=== PATIENT | female | born 1945 | race Caucasian/White ===

== ENCOUNTER 2020-07-08 10:58 | Outpatient (CLI) | payer MEDICARE, SELFPAY ==
--- NOTE | 2020-07-08 11:03 | MM_ITS ---
WS: [id number] BILATERAL SCREENING DIGITAL MAMMOGRAM WITH CAD HISTORY: SCREENING COMPARISON: 01/08/2019, 01/01/2018, 12/11/2017, 04/19/2016 and 09/10/2015 Bilateral CC and MLO views submitted. Computer aided detection analyzed. Breast composition: There are scattered areas of fibroglandular density. No suspicious masses, microc alcifications or architectural distortion. Calcifications in each breast are stable. There is a loose cluster of calcifications in the posterior lateral LEFT breast which has remained stable over multip le prior years with only minimal increase in number of calcifications. MM/[place] [id number] IMPRESSION: BI-RADS: 2-Benign FOLLOW UP: 1 Year Follow-up
== END 2020-07-08 10:59 | disposition home or self-care (01) ==
LOC: RADSHAW 11:02
PROVIDERS: Family Provider Family Medicine; Visit Provider Nurse Practitioner Family
DX: Z12.31 Encounter for screening mammogram for malignant neoplasm of breast (principal)
CPT/HCPCS: 77067

== ENCOUNTER 2021-04-14 10:49 | Outpatient (RCR) | payer MEDICARE, SELFPAY | END 2021-05-04 23:59 | disposition home or self-care (01) | LOC: SPT 10:49 | PROVIDERS: PCP Nurse Practitioner Family; Referring Provider Nurse Practitioner Family; Visit Provider Nurse Practitioner Family | DX: M53.3 Sacrococcygeal disorders, not elsewhere classified (principal) | CPT/HCPCS: 97113; 97161 ==

== ENCOUNTER → 2021-04-15 09:22 | Outpatient (BNVA) | payer MEDICARE, SELFPAY | PROVIDERS: PCP Nurse Practitioner Family; Referring Provider Nurse Practitioner Family; Visit Provider Anesthesiology Pain Medicine | DX: G89.29 Other chronic pain (principal); M47.816 Spondylosis without myelopathy or radiculopathy, lumbar region; M48.062 Spinal stenosis, lumbar region with neurogenic claudication; M51.16 Intervertebral disc disorders with radiculopathy, lumbar region; M79.605 Pain in left leg; Z79.899 Other long term (current) drug therapy | CPT/HCPCS: 99204 ==

== ENCOUNTER → 2021-05-03 14:07 | Outpatient (BNVA) | payer MEDICARE, SELFPAY | PROVIDERS: PCP Nurse Practitioner Family; Visit Provider Surgery | DX: Z01.812 Encounter for preprocedural laboratory examination (principal); Z20.822 Contact with and (suspected) exposure to COVID-19 | CPT/HCPCS: 87635 ==

== ENCOUNTER 2021-05-05 06:00 | Outpatient (RCR) | payer MEDICARE, SELFPAY | END 2021-06-04 23:59 | disposition home or self-care (01) | LOC: SPT 06:00 | PROVIDERS: PCP Nurse Practitioner Family; Referring Provider Nurse Practitioner Family; Visit Provider Nurse Practitioner Family | DX: M53.3 Sacrococcygeal disorders, not elsewhere classified (principal) | CPT/HCPCS: 97113 ==

== ENCOUNTER 2021-05-06 06:37 | Day surgery (SDC) | payer MEDICARE, SELFPAY ==
[2021-05-03 15:58] VITALS: BMI 38.4
--- NOTE | 2021-05-06 07:08 | P.ANESASSM_ITS ---
Pre-Anesthetic Assessment Pre-Anesthetic Assessment: Height/Weight: Height 1.57 m Weight 95.254 kg Preop Diagnosis: GERD, colon polyps Proposed Procedure: Operation Date: 05/06/21 08:00 Proposed Procedures p EGD/Colon 45282 K21.9(Not Applicable) - Ramses Waters MD s Colonoscopy 06962 K63.5(Not Applicable) - Ramses Waters MD Was Beta Neva taken within 24 hours: N/A Was Clonidine taken within 24 hours: N/A Social: Social History: No alcohol and No tobacco Exam: Pre-Anes Outpt Exam: clear to auscultation bilaterally and regular rate & rhythm Airway: Submandibular: WNL Cervical ROM: Other (Limited neck extension) MP: 3 Dentition: Chipped History/ROS: No significant history except as noted Pulmonary: Pulmonary: DONOVAN CV/HEM: CV/HEM: HTN and None reported : : None reported Hepatic: Hepatic: None reported GI: GI: GERD Comments: hx of polyps Metabolic: Metabolic: DM Musc/skel: Musc/skel: None reported Neuropsych: Neuropsych: None reported Anesthetic Plan: ASA status: 3 Anesthesia: Anesthesia Evaluation Risk of > 500 ml blood loss (7ml/kg in children): No PFSH Anesthesia 2 PFSH: Medical History Colon polyps Dyslipidemia GERD (gastroesophageal reflux disease) Hypertension Type 2 diabetes mellitus Surgical History History of back surgery laser spine 2018 History of x2 History of carpal tunnel repair 2012 History of colonoscopy with polypectomy 2018 History of esophagogastroduodenoscopy (EGD) 2018 S/P right knee surgery Status post left foot surgery 1990 Family History Denies family history of Anesthesia complication Bleeding disorder Social History Smoking and tobacco status: never smoked Alcohol intake: never Caregiver/support person: Yes Lives independently: Yes Household members: spouse History of recent travel: No Data Anesthesia Cardiac Studies: No Data to Display
[2021-05-06 07:09] VITALS: BP 177/80; PULSE 94; RESP 18; TEMP 36.1; O2SAT 96
[2021-05-06] MEDS: sodium chloride 0.9% 1,000 ML 30 ML IV (07:24)
--- NOTE | 2021-05-06 08:04 | W.PM.OPSFHP ---
Same Day Surgery H&P Indication for Procedure/HPI DATE OF PROCEDURE: May 06, 2021 CHIEF COMPLAINT/INDICATIONFOR SURGICAL PROCEDURE: gerd/colon polyp PREOP DIAGNOSIS: GERD, colon polyps PLANNED PROCEDRUE: Operation Date: 05/06/21 08:00 Proposed Procedures p EGD/Colon 74272 K21.9(Not Applicable) - Ramses Waters MD s Colonoscopy 26507 K63.5(Not Applicable) - Ramses Waters MD Medications/Allergies* Home Medications Medication Instructions Recorded Confirmed Type atorvastatin 20 mg tablet 20 mg PO DAILY 03/30/21 05/06/21 History diphenhydramine HCl 25 mg tablet 25 mg PO TID PRN 03/30/21 05/06/21 History donepezil 10 mg tablet 10 mg PO DAILY 03/30/21 05/06/21 History enalapril maleate 5 mg tablet 20 mg PO BID 03/30/21 05/06/21 History insulin glargine 100 unit/mL 61 unit SUBCUT BEDTIME 03/30/21 05/06/21 History subcutaneous solution nitroglycerin 0.4 mg sublingual 0.4 mg SUBLINGUAL Q5M PRN 03/30/21 05/03/21 History tablet pioglitazone 30 mg tablet 30 mg PO DAILY 03/30/21 05/03/21 History diltiazem HCl 120 mg PO DAILY 05/03/21 05/06/21 History diphenoxylate-atropine 2.5 tab PO PRN PRN 05/03/21 05/06/21 History omeprazole 20 mg PO BID 05/03/21 05/03/21 History Allergies/Adverse Reactions Allergy/AdvReac Type Severity Reaction Status Date / Time aspirin [From Percodan] Allergy Mild unknown Verified 04/15/21 09:43 codeine Allergy Mild unknown Verified 04/15/21 09:43 hydrocodone Allergy Mild unknown Verified 04/15/21 09:43 loratadine Allergy Mild unknown Verified 04/15/21 09:43 oxycodone Allergy Mild unknown Verified 04/15/21 09:43 prochlorperazine Allergy Mild unknown Verified 04/15/21 09:43 [From Compazine] Current Medications: Generic Name Dose Route Start Last Admin Trade Name Freq PRN Reason Stop Dose Admin Sodium Chloride 1,000 mls @ 30 mls/hr 05/06/21 06:45 05/06/21 07:24 Sodium Chloride 0.9% IV 05/07/21 06:44 30 mls/hr .Q24H GENIA Administration Pertinent History/Comorbid Conditions* Medical History (Updated 04/15/21 @ 10:35 by Mike Pryor MD) Colon polyps Dyslipidemia GERD (gastroesophageal reflux disease) Hypertension Type 2 diabetes mellitus Surgical History (Updated 03/30/21 @ 08:55 by Ramses Waters MD) History of back surgery laser spine 2018 History of x2 History of carpal tunnel repair 2012 History of colonoscopy with polypectomy 2018 History of esophagogastroduodenoscopy (EGD) 2018 S/P right knee surgery Status post left foot surgery 1990 Family History (Updated 04/15/21 @ 10:13 by Beatris Bravo LPN) Denies family history of Anesthesia complication Bleeding disorder Social History Smoking and tobacco status: never smoked Alcohol intake: never Caregiver/support person: Yes Lives independently: Yes Household members: spouse History of recent travel: No Pertinent Exam Findings alert, oriented x 3 and regular rate & rhythm Recommendations Surgery/Procedure today Coding Level of Care Code 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
[2021-05-06 08:48] VITALS: BP 139/71; PULSE 73; RESP 17; TEMP 36.4; O2SAT 94
--- NOTE | 2021-05-06 09:45 | PC.NURSE ---
Dr. Waters was in the room and this RN told physician that the patient was in pain. Dr. Waters explained to this RN and the patient that she would have some discomfort due to the amount of air that placed in the abdomen and passing gas and belching will help. Patient was placed on the commode twice and was able to pass gas. Patient then was placed back in bed and laid on her side where she started to pass more gas. Patients abdominal pain improved with passing gas. Patient also was able to belch several times prior to discharge as well.
[2021-05-06 09:48] VITALS: BP 150/64; PULSE 73; RESP 18; TEMP 36.6; O2SAT 95
--- NOTE | 2021-05-06 13:15 | ANE.PACU2 ---
Inpatient post-anesthesia follow up: Airway intact: Yes Vital signs: Temperature 97.8 F Pulse Rate 73 Respiratory Rate 18 Blood Pressure 150/64 Pulse Oximetry 95 Oxygen Delivery Me thod Room Air Oxygen Flow Rate Fraction of Inspir ed Oxygen Hydration adequate: Yes Nausea and vomiting: Yes Pain level: 1 (0) Mental status: Baseline
== END 2021-05-06 09:55 | disposition home or self-care (01) ==
PROVIDERS: PCP Nurse Practitioner Family; Visit Provider Surgery
PROC: 0DJD8ZZ Inspection of Lower Intestinal Tract, Via Natural or Artificial Opening Endoscopic (ICD-10-PCS; CPT 45378; 2021-05-06 08:00)
PROC: 0DJ08ZZ Inspection of Upper Intestinal Tract, Via Natural or Artificial Opening Endoscopic (ICD-10-PCS; CPT 43235; 2021-05-06 08:00)
DX: K21.9 Gastro-esophageal reflux disease without esophagitis (principal); K44.9 Diaphragmatic hernia without obstruction or gangrene; D12.2 Benign neoplasm of ascending colon; D12.0 Benign neoplasm of cecum; D12.4 Benign neoplasm of descending colon; D12.3 Benign neoplasm of transverse colon; K64.8 Other hemorrhoids; I10 Essential (primary) hypertension; E11.9 Type 2 diabetes mellitus without complications; E78.5 Hyperlipidemia, unspecified
CPT/HCPCS: 43239; 45380; 45385; 88305; 96360; 96361; J2704; J7030

== ENCOUNTER → 2021-05-07 10:37 | Outpatient (BNVA) | payer MEDICARE, SELFPAY | PROVIDERS: PCP Nurse Practitioner Family; Visit Provider Family Medicine | DX: Z01.812 Encounter for preprocedural laboratory examination (principal); Z20.822 Contact with and (suspected) exposure to COVID-19 | CPT/HCPCS: 87635 ==

== ENCOUNTER 2021-05-10 06:55 | Outpatient (CLI) | payer MEDICARE, SELFPAY ==
--- NOTE | 2021-05-10 07:15 | MR_ITS ---
WS: [id number] MRI LUMBAR SPINE NONCONTRAST HISTORY: Prior spine surgery. No prior images for comparison. LEFT hip and leg pain. COMPARISON: None available. TECHNIQUE: Sagittal and axial multisequence imaging is submitted. Mild degenerative narrowing of the cervical canal due to ligamentum flavum hypertrophy and facet dise ase. Benign T5 hemangioma. Mild straightening of the normal lumbar lordosis. Mild disc desiccation without significant loss of height. Conus terminates normally at L1. L1-L2: Mild ligamentum flavum hypertrophy. No stenosis. L2-L3: Mild annular disc bulging and very mild osteophytic ridging with ligamentum flavum hypertrophy . Very mild encroachment and narrowing of the foramina, LEFT greater than RIGHT. L3-L4: Mild annular disc bulging and osteophytic ridging. Mild ligamentum flavum and facet arthritis. Mild bilateral foraminal narrowing with no focal disc protrusion. L4-L5: Very mild annular disc bulging. Moderate ligamentum flavum and facet arthritis. Degenerative c hanges are resulting in mild bilateral foraminal stenosis. Very mild clumping of the nerve roots begi nning within the thecal sac. There is very slight contact on the LEFT traversing L5 nerve root. L5-S1: Mild facet and ligamentum flavum hypertrophy. Mild bilateral foraminal narrowing. Mild encroac hment into the LEFT subarticular recess by facet hypertrophy. No disc protrusions. Visualized retroperitoneum is normal. The liver is enlarged and extends inferiorly by at least 19 cm. This may be a Mari's lobe. MR/MR lumbar spine wo con* [id number] IMPRESSION: 1. No high-grade central or foraminal stenosis. No acute fractures or marrow e maribell. 2. Mild bilateral foraminal narrowing from L2-3 to L3-4 due to combination of facet, ligamentum flavum disease and disc disease. 3. Minimal contact on the LEFT traversing L5 and S1 nerve roots. 4. Degenerative changes involving the facets and ligamentum flavum throughout the lumbar spine but most significant at L4-5.
== END 2021-05-10 06:56 | disposition home or self-care (01) ==
LOC: RADSHAW 06:58
PROVIDERS: PCP Nurse Practitioner Family; Visit Provider Anesthesiology Pain Medicine
DX: M48.062 Spinal stenosis, lumbar region with neurogenic claudication (principal); M25.552 Pain in left hip; M79.605 Pain in left leg
CPT/HCPCS: 72148

== ENCOUNTER 2021-05-11 08:38 | Outpatient (CLI) | payer MEDICARE, SELFPAY ==
--- NOTE | 2021-05-11 08:57 | USCV_ITS ---
Jaki Hummel Age: 75 Gender: F : 1945 Exam Date: 05/11/2021 09:03 Ordering Phys: Antwon Angel MD Technologist: [place] Exam Location: [facility] – [place] Indication: CHEST PAIN BP: 153 / 73 HR: 64 Rhythm: Sinus Technical Quality: Technically difficult study MEASUREMENTS (Male / Female) Normal Values 2D ECHO LV Diastolic Diameter PLAX 3.5 cm 4.2 - 5.9 / 3.9 - 5.3 cm LV Systolic Diameter PLAX 2.2 cm IVS Diastolic Thickness 1.3 cm 0.6 - 1.0 / 0.6 - 0.9 cm IVS Systolic Thickness 1.6 cm LVPW Diastolic Thickness 1.1 cm 0.6 - 1.0 / 0.6 - 0.9 cm LVPW Systolic Thickness 1.6 cm RV Chamber Size 3.1 cm LVOT Diameter 2.0 cm LV Ejection Fraction 2D Teich 59.7 % LV Ejection Fraction MOD 2C 59.5 % LV Ejection Fraction 2C AL 61.0 % LA Diameter 3.4 cm LA Width 3.9 cm LA Height 5.0 cm RA Width 4.0 cm RA Height 3.7 cm Aorta at Sinotubular Diameter 2.4 cm M-MODE Aortic Annulus Diameter 3.2 cm LA Ao Ratio MM 1.2 MV E Point Septal Separation 0.4 cm DOPPLER AV Peak Velocity 121.0 cm/s LVOT Peak Velocity 100.0 cm/s AV Area Cont Eq vti 2.6 cm squared AV Area Cont Eq pk 2.6 cm squared MV Area PHT 3.7 cm squared Mitral E to A Ratio 0.8 MV E' Velocity 48.0 cm/s Mitral E to MV E' Ratio 10.5 Mitral E to LV E' Lateral Ratio 12.0 Mitral E to LV E' Septal Ratio 9.4 TR Peak Velocity 322.9 cm/s TR Peak Gradient 41.7 mmHg TR Mean Velocity 230.4 cm/s TR Mean Gradient 21.9 mmHg TR Velocity Time Integral 86.4 cm TV Peak E Velocity 55.0 cm/s Right Atrial Pressure 3.0 mmHg Pulmonary Artery Systolic Pressu 44.7 mmHg PV Peak Velocity 93.0 cm/s RV Acceleration Time 0.1 s RV Ejection Time 0.3 s RV AcT/ET 0.2 FINDINGS Left Ventricle Normal left ventricular size, systolic function and wall thickness, with no diagnostic regional wall motion abnormalities. Left ventricular ejection fraction is estimated at 55 %. Normal diastolic function. Right Ventricle Normal right ventricular size and systolic function. Right ventricular systolic pressure 36 mmHg. Right Atrium Normal right atrial size. Right atrial pressure estimated at 3 mm Hg. Left Atrium Mildly increased left atrial size. Mitral Valve Mild mitral annular calcification. Mildly thickened mitral valve. No mitral valve stenosis. Trace mitral valve regurgitation. Aortic Valve Structurally normal trileaflet aortic valve. No aortic valve stenosis. No aortic valve regurgitation. Tricuspid Valve Structurally normal tricuspid valve. Trace to mild tricuspid valve regurgitation. Pulmonic Valve Pulmonic valve not well visualized. No pulmonary valve stenosis. Trace pulmonary valve regurgitation. Pericardium No pericardial effusion. Aorta Normal size aortic root and proximal ascending aorta. Normal- sized inferior vena cava with less than 50% respiratory variation. CONCLUSIONS 1. Normal left ventricular size, systolic function and wall thickness, with no diagnostic regional wall motion abnormalities. Left ventricular ejection fraction is estimated at 55 %. Normal diastolic function. 2. Normal right ventricular size and systolic function. 3. Mild pulmonary hypertension with pulmonary pressure estimated at 36 mmHg. 4. When compared to previous echocardiogram dated 12/18/2017, there may not have been any significant change. Vivienne Yousif MD (Electronically Signed) Final Date: 11 May 2021 18:03 S
== END 2021-05-11 08:39 | disposition home or self-care (01) ==
LOC: RAD 08:42
PROVIDERS: PCP Nurse Practitioner Family; Visit Provider Family Medicine
DX: R07.9 Chest pain, unspecified (principal); I27.20 Pulmonary hypertension, unspecified
CPT/HCPCS: 93306

== ENCOUNTER 2021-05-13 08:13 | Outpatient (CLI) | payer MEDICARE, SELFPAY ==
--- NOTE | 2021-05-13 11:31 | PFTS_ITS ---
Date of Study:05/13/21 Date of Dictation: 05/13/2021 MECHANICS: Prebronchodilator forced vital capacity (FVC) is normal. Prebronchodilator forced expiratory volume in one second (FEV1) is normal. FEV1/FVC is normal. There is no postbronchodilator study FLOW VOLUME LOOP: Flattening of inspiratory limb variable extrathoracic obstruction LUNG VOLUMES: Not measured DIFFUSING CAPACITY FOR CARBON MONOXIDE: Not measured . INTERPRETATION: The prebronchodilator spirometry is normal. Flattening of inspiratory limb suggestive of variable extrathoracic obstruction. Clinical correlation recommended. MTDD
== END 2021-05-13 08:14 | disposition home or self-care (01) ==
PROVIDERS: PCP Nurse Practitioner Family; Visit Provider Family Medicine
DX: I27.20 Pulmonary hypertension, unspecified (principal); R07.9 Chest pain, unspecified
CPT/HCPCS: 94010

== ENCOUNTER → 2021-05-17 10:30 | Outpatient (BNVA) | payer MEDICARE, SELFPAY | PROVIDERS: PCP Nurse Practitioner Family; Visit Provider Anesthesiology Pain Medicine | DX: M47.816 Spondylosis without myelopathy or radiculopathy, lumbar region (principal); M51.16 Intervertebral disc disorders with radiculopathy, lumbar region; M79.605 Pain in left leg | CPT/HCPCS: 99214 ==

== ENCOUNTER → 2021-05-24 13:01 | Outpatient (BNVA) | payer MEDICARE, SELFPAY | PROVIDERS: PCP Nurse Practitioner Family; Visit Provider Anesthesiology Pain Medicine | DX: M47.816 Spondylosis without myelopathy or radiculopathy, lumbar region (principal) | CPT/HCPCS: 64493; 64494; 64495; J3490 ==

== ENCOUNTER → 2021-06-09 09:17 | Outpatient (BNVA) | payer MEDICARE, SELFPAY | PROVIDERS: PCP Nurse Practitioner Family; Visit Provider Anesthesiology Pain Medicine | DX: M47.816 Spondylosis without myelopathy or radiculopathy, lumbar region (principal); M51.16 Intervertebral disc disorders with radiculopathy, lumbar region; M79.605 Pain in left leg | CPT/HCPCS: 99214 ==

== ENCOUNTER → 2021-06-22 13:22 | Outpatient (BNVA) | payer MEDICARE, SELFPAY | PROVIDERS: PCP Nurse Practitioner Family; Visit Provider Anesthesiology Pain Medicine | DX: M47.816 Spondylosis without myelopathy or radiculopathy, lumbar region (principal) | CPT/HCPCS: 64493; 64494; 64495; J3490 ==

== ENCOUNTER → 2021-07-01 08:51 | Outpatient (BNVA) | payer MEDICARE, SELFPAY | PROVIDERS: PCP Nurse Practitioner Family; Visit Provider Anesthesiology Pain Medicine | DX: M47.816 Spondylosis without myelopathy or radiculopathy, lumbar region (principal); M51.16 Intervertebral disc disorders with radiculopathy, lumbar region; M79.605 Pain in left leg | CPT/HCPCS: 99214 ==

== ENCOUNTER → 2021-07-13 14:00 | Outpatient (BNVA) | payer MEDICARE, SELFPAY | PROVIDERS: PCP Nurse Practitioner Family; Visit Provider Anesthesiology Pain Medicine | DX: M47.816 Spondylosis without myelopathy or radiculopathy, lumbar region (principal) | CPT/HCPCS: 64635; 64636; J1030 ==

== ENCOUNTER → 2021-07-27 12:58 | Outpatient (BNVA) | payer MEDICARE, SELFPAY | PROVIDERS: PCP Nurse Practitioner Family; Visit Provider Anesthesiology Pain Medicine | DX: Z01.812 Encounter for preprocedural laboratory examination (principal); E11.9 Type 2 diabetes mellitus without complications; M47.816 Spondylosis without myelopathy or radiculopathy, lumbar region | CPT/HCPCS: 36416; 64635; 64636; 82962 ==

== ENCOUNTER 2021-08-05 08:58 | Outpatient (CLI) | payer MEDICARE, SELFPAY ==
[2021-08-05 09:36] VITALS: BMI 37.8
--- NOTE | 2021-08-05 09:38 | ECG_ITS ---
[facility] Test Date: 2021-08-05 Pat Name: Jaki Hummel Department: Room: Gender: Female Solutions Manager: Clara Johnson : 1945 Requested By: Ashvin Langley Order Number: [id number] Jermaine MD: Ashvin Langley M.D. Interpretive Statements NAME OF STUDY: LEXISCAN SESTAMIBI STRESS TEST INDICATION: Chest Pain, PROCEDURE: At the baseline, the EKG revealed normal sinus rhythm with a poor R wave progression. The baseline blood pressure was 129/78 mm Hg with a heart rate of 73 beats/min. Lexiscan was infused over a period of 20 seconds. A total of 0.4 milligrams of Lexiscan was infused. The stress phase was continued for a total of 5 minutes. Heart rate at the end of the stress phase was 81 with a blood pressure 131/72. The EKG at the peak infusion revealed no significant changes. Sestamibi was injected 20 seconds after the Lexiscan infusion. Blood pressure at the end of the recovery phase was 110/70 with a heart rate of 83 per minute. CONCLUSION: 1. No significant EKG changes with the LexiScan infusion 2. No LexiScan induced chest pain or cardiac arrhythmia 3. Normal blood pressure and heart rate response 4. Sestamibi/sestamibi perfusion scan pending; see separate report. Electronically Signed On 08-06-2021 19:34:14 JACQUARD TWINE POLISHER OPERATOR by Ashvin Langley M.D. [id number]
--- NOTE | 2021-08-05 09:39 | NMCV_ITS ---
NM harjinder perf SPECT r/s* [id number] Jaki Hummel Age: 75 Gender: F : 1945 Exam Date: 08/05/2021 10:23 Ordering Phys: Ashvin Langley MD ([email or web address]) Technologist: BRITNEY Can Exam Location: [facility] Indications: SHORTNESS OF BREATH STRESS TEST Please see separate stress test report in [facility] for full findings IMAGE PROTOCOL Rest/Stress 1 Lexiscan Day Radiopharmaceutical Dose (mCi) Administration Site Administered by Rest: Tc-99m 11.0 IV BRITNEY Can Sestamibi Stress:Tc-99m 32.9 IV BRITNEY López Sestamibi Rest: 05-Aug-2021 60 Discovery 630 Stress: 05-Aug-2021 30 Discovery 630 0.4mg Lexiscan. Supine position only as patient was unable to lay prone. SPECT RESULTS Technical Quality: Good Raw Data Analysis: Breast attenuation Image Corrections: No attenuation or motion correction applied Summed Stress Score: 0 Summed Rest Score: 0 Summed Difference Score: 0 PERFUSION FINDINGS Uniform myocardial tracer uptake. No significant perfusion normalities FUNCTIONAL RESULTS (calculated via Gated SPECT) Stress Image LV EF (%): 75 Stress EDV (mL):67 TID: 0.89 Stress ESV (mL):17 FUNCTIONAL FINDINGS: Segmental wall motion analysis revealing no gross wall motion abnormalities IMPRESSIONS 1. Unremarkable myocardial perfusion imaging 2. Normal LV ejection fraction of 75%. 3. LV wall motion analysis revealing no gross wall motion normalities. 4. Normal LV volume. Low probability for coronary ischemia, based on the above findings corrected copy Dr Ashvin Langely MD [facility] (Electronically Signed) Final Date: 05 August 2021 16:51 Amended: 06 August 2021 18:08 C
[2021-08-05] MEDS: regadenoson 0.4 Mg/5 ml Syringe IVP (10:56)
[2021-08-05 11:10] VITALS: BP 110/70; PULSE 78
== END 2021-08-05 08:59 | disposition home or self-care (01) ==
LOC: RAD 09:08 → CDL 09:21
PROVIDERS: PCP Nurse Practitioner Family; Visit Provider Internal Medicine Cardiovascular Disease
DX: R07.9 Chest pain, unspecified (principal); R06.02 Shortness of breath
CPT/HCPCS: 78452; 93017; A9500; J2785

== ENCOUNTER → 2021-08-11 09:50 | Outpatient (BNVA) | payer MEDICARE, SELFPAY | PROVIDERS: PCP Nurse Practitioner Family; Visit Provider Anesthesiology Pain Medicine | DX: M47.816 Spondylosis without myelopathy or radiculopathy, lumbar region (principal); M51.16 Intervertebral disc disorders with radiculopathy, lumbar region; M79.605 Pain in left leg | CPT/HCPCS: 99213 ==

== ENCOUNTER → 2021-11-08 10:32 | Outpatient (BNVA) | payer MEDICARE, SELFPAY | PROVIDERS: PCP Nurse Practitioner Family; Visit Provider Anesthesiology Pain Medicine | DX: M25.552 Pain in left hip (principal); M47.816 Spondylosis without myelopathy or radiculopathy, lumbar region; M51.16 Intervertebral disc disorders with radiculopathy, lumbar region | CPT/HCPCS: 99214 ==

== ENCOUNTER 2021-12-10 13:29 | Outpatient (CLI) | payer MEDICARE, SELFPAY ==
--- NOTE | 2021-12-10 13:53 | MM_ITS ---
WS: [id number] BILATERAL 3D TOMOSYNTHESIS DIGITAL SCREENING MAMMOGRAPHY WITH CAD CLINICAL INFORMATION: SCREENING HISTORY: Screening mammogram. No current complaints. COMPARISON: July 08, 2020 TECHNIQUE: Bilateral CC and MLO views. FINDINGS: Scattered fibroglandular densities bilaterally. Vascular calcification. Stable clustered calcificatio ns posterior inferior LEFT breast. No suspicious focal mass, asymmetry, calcifications, or architectu ral distortion. No evidence of malignancy. MM/[place] [id number] IMPRESSION: BI-RADS: 2-Benign FOLLOW UP: 1 Year Follow-up Recommend return to annual screening mammography.
== END 2021-12-10 13:30 | disposition home or self-care (01) ==
PROVIDERS: PCP Nurse Practitioner Family; Visit Provider Family Medicine
DX: Z12.31 Encounter for screening mammogram for malignant neoplasm of breast (principal)
CPT/HCPCS: 77063; 77067

== ENCOUNTER → 2022-02-17 07:58 | Outpatient (BNVA) | payer MEDICARE, SELFPAY | PROVIDERS: PCP Nurse Practitioner Family; Visit Provider Family Medicine | DX: I10 Essential (primary) hypertension; E78.5 Hyperlipidemia, unspecified; Z85.828 Personal history of other malignant neoplasm of skin; E11.65 Type 2 diabetes mellitus with hyperglycemia; M51.16 Intervertebral disc disorders with radiculopathy, lumbar region; M47.816 Spondylosis without myelopathy or radiculopathy, lumbar region; K21.9 Gastro-esophageal reflux disease without esophagitis; Z00.00 Encounter for general adult medical examination without abnormal findings; Z76.89 Persons encountering health services in other specified circumstances; K58.0 Irritable bowel syndrome with diarrhea; R41.3 Other amnesia | CPT/HCPCS: 80053; 80061; 82043; 83036 ==

== ENCOUNTER → 2022-03-09 09:05 | Outpatient (BNVA) | payer MEDICARE, SELFPAY | PROVIDERS: PCP Nurse Practitioner Family; Visit Provider Anesthesiology Pain Medicine | DX: M47.816 Spondylosis without myelopathy or radiculopathy, lumbar region (principal); M51.16 Intervertebral disc disorders with radiculopathy, lumbar region; M79.605 Pain in left leg | CPT/HCPCS: 99214 ==

== ENCOUNTER → 2022-03-23 09:14 | Outpatient (BNVA) | payer MEDICARE, SELFPAY | PROVIDERS: PCP Nurse Practitioner Family; Visit Provider Anesthesiology Pain Medicine | DX: M79.18 Myalgia, other site (principal); M54.9 Dorsalgia, unspecified | CPT/HCPCS: 20553; G0463 ==

== ENCOUNTER → 2022-05-09 11:13 | Outpatient (BNVA) | payer MEDICARE, SELFPAY | PROVIDERS: PCP Family Medicine; Visit Provider Anesthesiology Pain Medicine | DX: M54.9 Dorsalgia, unspecified (principal); M51.17 Intervertebral disc disorders with radiculopathy, lumbosacral region; M47.816 Spondylosis without myelopathy or radiculopathy, lumbar region; M51.16 Intervertebral disc disorders with radiculopathy, lumbar region; M79.605 Pain in left leg | CPT/HCPCS: 72072; 99214 ==

== ENCOUNTER → 2022-05-10 13:37 | Outpatient (BNVA) | payer MEDICARE, SELFPAY | PROVIDERS: PCP Family Medicine; Visit Provider Podiatrist Foot & Ankle Surgery | DX: M76.822 Posterior tibial tendinitis, left leg (principal); R60.9 Edema, unspecified; M79.672 Pain in left foot | CPT/HCPCS: 73630; 99204 ==

== ENCOUNTER → 2022-05-26 08:27 | Outpatient (BNVA) | payer MEDICARE, SELFPAY | PROVIDERS: PCP Family Medicine; Visit Provider Family Medicine | DX: E11.65 Type 2 diabetes mellitus with hyperglycemia (principal) | CPT/HCPCS: 80048; 83036 ==

== ENCOUNTER → 2022-08-11 10:32 | Outpatient (BNVA) | payer MEDICARE, SELFPAY | PROVIDERS: PCP Family Medicine; Visit Provider Anesthesiology Pain Medicine | DX: M47.816 Spondylosis without myelopathy or radiculopathy, lumbar region (principal); M51.16 Intervertebral disc disorders with radiculopathy, lumbar region | CPT/HCPCS: 99213 ==

== ENCOUNTER → 2022-08-24 08:51 | Outpatient (BNVA) | payer MEDICARE, SELFPAY | PROVIDERS: PCP Family Medicine; Visit Provider Family Medicine | DX: E11.65 Type 2 diabetes mellitus with hyperglycemia (principal); I10 Essential (primary) hypertension; E78.5 Hyperlipidemia, unspecified; K21.9 Gastro-esophageal reflux disease without esophagitis | CPT/HCPCS: 80053; 80061; 83036 ==

== ENCOUNTER → 2022-08-30 12:35 | Outpatient (BNVA) | payer MEDICARE, SELFPAY | PROVIDERS: PCP Family Medicine; Visit Provider Anesthesiology Pain Medicine | DX: M47.816 Spondylosis without myelopathy or radiculopathy, lumbar region (principal) | CPT/HCPCS: 64635; 64636; J1030 ==

== ENCOUNTER → 2022-09-14 10:18 | Outpatient (BNVA) | payer MEDICARE, SELFPAY | PROVIDERS: PCP Family Medicine; Visit Provider Anesthesiology Pain Medicine | DX: M47.816 Spondylosis without myelopathy or radiculopathy, lumbar region (principal); M51.16 Intervertebral disc disorders with radiculopathy, lumbar region | CPT/HCPCS: 99214 ==

== ENCOUNTER → 2022-12-22 08:34 | Outpatient (BNVA) | payer MEDICARE, SELFPAY | PROVIDERS: PCP Family Medicine; Visit Provider Family Medicine | DX: E11.65 Type 2 diabetes mellitus with hyperglycemia (principal) | CPT/HCPCS: 83036 ==

== ENCOUNTER 2022-12-29 08:02 | Outpatient (CLI) | payer MEDICARE, SELFPAY ==
[2022-12-29] MEDS: iohexol 350 mg/mL 500 mL Btl (per mL) IV (08:28)
--- NOTE | 2022-12-29 08:30 | CT_ITS ---
WS: [id number] CT ABDOMEN WITH CONTRAST HISTORY: luq pain tenderness Contiguous single phase 5 mm axial imaging performed to the abdomen. Oral contrast has been provided. Coronal and sagittal reformats are submitted. All CT scans at [facility] use at least one of these dose optimization techniques: automated exposure control; mA and/or kV adjustment per patient size (includes targeted exams where dose is matched to clinical indication); or iterative reconstruct ion. IV CONTRAST: Omnipaque 350; 100 mL IV. Oral contrast: No DLP: 466.57 mGy.cm COMPARISON: None available. Lower thorax: Lung bases are clear. Heart is normal size. Small hiatal hernia. Liver/biliary system: Mild hepatomegaly. Liver measures 19 cm in length. No mass or bile duct dilatat ion. Normal portal vein. Gallbladder: Normal. No gallstones or wall thickening. No pericholecystic fluid. Pancreas: Normal size pancreas and pancreatic duct. No adjacent inflammation. Spleen: Normal size spleen. No mass or infarct. Adrenal glands: Normal. Right kidney: Normal. Left kidney: Normal. Aorta: Normal. Lymphadenopathy: None. Free fluid: None. GI tract: Unremarkable. Abdominal wall: Unremarkable abdominal wall. No hernia. Visualized osseous structures: Mild thoracic spondylitic changes. CT/CT abdomen w con* [id number] IMPRESSION: 1. No acute abdominal abnormalities are identified. 2. Normal gallbladder. 3. Mild atherosclerosis aorta. 4. Mild hepatomegaly.
[2022-12-29 08:50] LABS: Blood Urea Nitrogen 16 mg/dL (8-23)
--- NOTE | 2022-12-29 13:25 | MM_ITS ---
WS: [id number] SCREENING DIGITAL BREAST TOMOSYNTHESIS MAMMOGRAM WITH CAD HISTORY: breast cancer screening COMPARISON: 12/10/2021, 07/08/2020 and 01/08/2019 Bilateral CC and MLO with tomosynthesis and synthetic mammography submitted. Computer aided detection analyzed. Breast composition: There are scattered areas of fibroglandular density. Increasing soft tissue with slight spiculation is noted in the posterior LEFT breast against the chest wall and just inferior to the nipple line. There are some calcifications adjacent and associated with this increasing soft tiss ue. These calcifications have been present on prior studies. Additional calcifications just above the nipple line on the lateral projection. RIGHT breast is negative. MM/[place] [id number] IMPRESSION: BI-RADS: 0-Incomplete: Need additional imaging evaluation FOLLOW UP: Need Additional Imaging LEFT breast: Spot compression views (CC and MLO). True ML. Ultrasound to follow if abnormality persists.
== END 2022-12-29 08:03 | disposition home or self-care (01) ==
LOC: RAD 08:08 → MOBLMAM 13:24
PROVIDERS: PCP Family Medicine; Visit Provider Family Medicine
DX: Z12.31 Encounter for screening mammogram for malignant neoplasm of breast (principal); R10.12 Left upper quadrant pain; I70.0 Atherosclerosis of aorta; R16.0 Hepatomegaly, not elsewhere classified
CPT/HCPCS: 74160; 77063; 77067; 82565; 84520; Q9967

== ENCOUNTER 2023-01-20 08:34 | Outpatient (CLI) | payer MEDICARE, SELFPAY ==
--- NOTE | 2023-01-20 08:38 | MM_ITS ---
WS: [id number] Left breast diagnostic 3D tomosynthesis digital mammogram, 01/20/2023 Clinical Data: ABNORMAL MAMMO Comparison: 12/29/2022, 12/10/2021, 07/08/2020, 01/08/2019, 12/11/2017, 11/20/2016, 04/19/2016, 09/10/2015, 2015, 12/04/2008, 12/23/2003. Findings: There are calcifications in the lower outer quadrant of the left breast, possibly in the 3 to 4 o'cayla ck position. There may be a small density associated with this mass. In the 1 to 2 o'clock position t here are also small calcifications which have not changed. Impression: 1. Calcifications in the lower outer quadrant in the left breast possibly 3 to 4 o'clock position. 2. Recommend left breast ultrasound. MM/[place] [id number] BIRADS: 4-Suspicious Finding-Biopsy Should Be Considered FOLLOW UP: See Report The CAD jukebox checker was used.
--- NOTE | 2023-01-20 08:38 | US_ITS ---
WS: [id number] Left breast ultrasound, 01/20/2023 Clinical Data: ABNORMAL MAMMO Comparison: Mammogram, 01/20/2023 Findings: In the 3 o'clock position 2 cm from the nipple in the left breast there is an region measuring 0.59 x 0.87 x 1.27 cm which has a lobulated border. This lesion also shows shadowing and probably correspon ds to the lesion noted on the mammogram. At 1:00 there is a small cluster of cysts measuring 0.52 x 0.68 x 0.72 cm. At the 2 o'clock position 2 cm from the nipple there is also a lymph node measuring 0.40 x 0.50 x 0.56 cm. Impression: 1. Suspicious region in the 3 o'clock position 2 cm from the nipple in the left breast which shows sh adowing. 2. Recommend biopsy of lesion at 3 o'clock position of the left breast. 3. Cysts at 1 o'clock position left breast and lymph node at the 2 o'clock position of the left breas t. US/US breast LT limited* [id number] BIRADS: 4-Suspicious Finding-Biopsy Should Be Considered FOLLOW UP: See Report
== END 2023-01-20 08:35 | disposition home or self-care (01) ==
PROVIDERS: PCP Family Medicine; Visit Provider Family Medicine
DX: R92.8 Other abnormal and inconclusive findings on diagnostic imaging of breast (principal); R92.1 Mammographic calcification found on diagnostic imaging of breast; N64.89 Other specified disorders of breast
CPT/HCPCS: 76642; 77061; G0279

== ENCOUNTER 2023-02-15 11:55 | Outpatient (CLI) | payer MEDICARE, SELFPAY ==
--- NOTE | 2023-02-15 12:10 | US_ITS ---
WS: [id number] ULTRASOUND-GUIDED LEFT BREAST BIOPSY CLINICAL INFORMATION: ABNORMAL MAMMO COMPARISON: 01/20/2023 FINDINGS: The procedure including risks, benefits, and complications were discussed with the patient who agreed to proceed. Using sterile technique patient was prepped and draped in the usual sterile fashion. Aft er 1% lidocaine utilizing real-time ultrasound guidance 7 14-gauge cores were obtained of the LEFT br east lesion at the 3 o'clock position 2 cm from the nipple. Subsequently a titanium clip was placed i n the biopsy cavity. No immediate complications. PATHOLOGY DEMONSTRATES Left breast, 3:00 position, 2.0 cm from nipple, needle core biopsy: 1. 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 2. Nuclear Grade 1-2 out of 3. 3. Approximately 60% of the tissue volume submitted involved with invasive neoplasm. 4. There is no evidence that suggests lymphovascular invasion. IMPRESSION: 1. Uncomplicated ultrasound-guided LEFT breast biopsy. 2. 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 3. Breast prognostic profile is pending. 4. Recommend breast surgery consultation. US/[place] [id number] BI-RADS: 6-Known Biopsy-Proven Malignancy FOLLOW UP: Surgical Biopsy Recommended
[2023-03-07 09:10] LABS: Breast Profile ER,PR,HER2,Ki-6 See Report
== END 2023-02-15 11:56 | disposition home or self-care (01) ==
PROVIDERS: PCP Family Medicine; Visit Provider Family Medicine
DX: C50.812 Malignant neoplasm of overlapping sites of left female breast (principal); R92.8 Other abnormal and inconclusive findings on diagnostic imaging of breast
CPT/HCPCS: 19083; 88305; 88361; 88374

== ENCOUNTER 2023-02-28 07:45 | Oncology outpatient (recurring) (ONCR) | payer MEDICARE, SELFPAY ==
[2023-02-28 09:34] LABS: Basophils # 0.1 10^3/uL (0.0-0.1); Basophils % 0.8 %; Eosinophils # 0.1 10^3/uL (0.0-0.8); Eosinophils % 1.4 %; Hematocrit 38.4 % (36-47); Lymphocytes # 2.7 10^3/uL (0.8-4.8); Lymphocytes % 40.5 %; Mean Corpuscular Hemoglobin 28.4 pg (27-33); Mean Corpuscular Volume 88.7 fl (85-98); Mean Platelet Volume 9.9 fL (7.4-10.4); Monocytes # 0.5 10^3/uL (0.2-0.9); Neutrophils # 3.22 10^3/uL (1.8-7.7); Neutrophils % 49.1 %; Nucleated Red Blood Cells % 0 %; Platelet Count 283 10^3/cmm (157-399); Red Blood Count 4.33 10^6/uL (3.85-5.65); Red Cell Distribution Width 13.6 % (12.1-15.1); White Blood Count 6.54 10^3/uL (3.29-11.43)
[2023-02-28 09:57] LABS: Alanine Aminotransferase 15 U/L (0-33); Albumin Level 4.3 g/dL (3.5-5.2); Alkaline Phosphatase 54 U/L (35-105); Aspartate Amino Transferase 12 U/L (0-32); Blood Urea Nitrogen 15 mg/dL (8-23); Calcium 8.8 mg/dL (8.5-10.5); Carbon Dioxide 24 mmol/L (22-29); Chloride 99 mmol/L (98-107); Creatinine Clr Calc Pharmacy 65.4459; Globulin 2.2 g/dL (1.3-4.6); Glucose 187 mg/dL (65-115); Osmolality Calculated 284 mOsm/kg (285-295); Sodium 134 mmol/L (136-145); Total Bilirubin 0.3 mg/dL (0.15-1.2); Total Protein 6.5 g/dL (6.6-8.7)
== END 2023-03-04 23:59 | disposition home or self-care (01) ==
PROVIDERS: PCP Family Medicine; Visit Provider Internal Medicine Medical Oncology
DX: C50.512 Malignant neoplasm of lower-outer quadrant of left female breast (principal); Z17.0 Estrogen receptor positive status [ER+]
CPT/HCPCS: 36415; 80053; 85025; 99205

== ENCOUNTER → 2023-03-14 14:24 | Outpatient (BNVA) | payer MEDICARE, SELFPAY | PROVIDERS: PCP Family Medicine; Referring Provider Family Medicine; Visit Provider Dermatology | DX: L57.0 Actinic keratosis (principal); L82.1 Other seborrheic keratosis; L57.8 Other skin changes due to chronic exposure to nonionizing radiation; Z85.828 Personal history of other malignant neoplasm of skin; D18.01 Hemangioma of skin and subcutaneous tissue | CPT/HCPCS: 17000; 99213 ==

== ENCOUNTER 2023-04-26 08:52 | Oncology outpatient (recurring) (ONCR) | payer MEDICARE, SELFPAY ==
--- OUTSIDE RECORDS SUMMARY | 2023-04-26 08:54 | XMS_ITS | Patient Health Record ---
Author Name Unknown Organization [facility] Address [address] [place] [address] Care Team Providers Care Computer Repairer Name Role Phone Veronica Bhakta Primary Care Provider [phone] Alexandrea Schuler Unavailable [phone] TANNA BRYAN Unavailable Unavailable ALLERGIES Allergen (clinical drug ingredient) Drug/Non Drug Allergy documented on EMR Reaction Allergy Type Onset Date Status codeine Codeine Sulfate nausea and vomiting Drug Allergy Active acetaminophen / hydrocodone Hydrocodone-Acet aminophen nausea and vomiting Drug Allergy Active lovastatin Lovastatin mood changes Drug Allergy Ac tive oxycodone Oxycodone HCl nausea and vomiting Drug Allergy Active Percodan nausea and vomiting Drug Allergy Active liraglutide Victoza pancreatitis Drug Allergy Ac tive Compazine Unknown Drug Allergy Active dapagliflozin Farxiga dizziness Drug Allergy Act ebony metformin Metformin diarrhea Drug Allergy Active Non-steroidal anti-inflammatory agent (FN) NSAIDs stomach upset Drug Allergy Active REASON FOR REFERRAL No Information MEDICATIONS Medication SIG (Take, Route, Frequency, Duration) Notes Start Date End Date Status Nitrostat 0.4 MG as directed Sublingual Active CoQ-10 100 MG 1 capsule with a meal Orally Once a day for 30 day(s) 07/14/2020 Active Omeprazole 20 MG 1 tablet 30 minutes before meals Orally twice daily for 90 days Active Probiotic - as directed Orally [place] Extra Strength Active OneTouch Ultra Test - use to test blood glucose In Vitro twice daily Dx: E11.65 Active dilTIAZem HCl ER Coated Beads 180 MG 1 capsule Orally Once a day for 90 days Active Honey 1 Tbs. Raw Honey Act ebony Yeast Formula - as directed Orally Mother's Yeas t ACV 1 Tbs. Active Donepezil HCl 10 MG 1 tablet at bedtime Orally Once a day for 90 days Active Pen [place] 31G X 6 MM Use to inject Lantus Dx: E11.9 sub q daily for 90 days Active Garlic 1000 MG 1 capsule Orally once a day NatureMade Active Vitamin E 400 UNIT 1 capsule Orally Once a day Active Vitamin D 50 MCG (2000 UT) 1 tablet Orally Once a day Active OneTouch Ultra - as directed In Vitro test daily for 1 day E11.9 Diabetes 06/15/2021 Active Januvia 25 MG 1 tablet Orally Once a day for 30 days 06/24/2021 Active OneTouch Ultra - USE 1 STRIP TO CHECK GLUCOSE TWICE DAILY for 90 Active Lantus SoloStar 100 UNIT/ML Inject 76 units Subcutaneous once daily for 90 days Active Allergy 10 MG 1 tablet Orally Once a day equate allergy/sinus headache Active Acetaminophen PM 500-25 MG 2 tablet at bedtime as needed Orally Once a day Active Pantothenic Acid B-5 Complex A ctive [place] 3 1200 MG 1 capsule Orally twice a day 1290mg Active Pioglitazone HCl 30 MG TAKE 1 TABLET BY MOUTH ONCE DAILY for 90 Active Enalapril Maleate 20 MG 1 tablet Orally twice daily for 90 days Active Atorvastatin Calcium 20 MG 1 tablet Orally once daily at bedtime for 90 days Active Vitamin C 1000 MG 1 tablet Orally Once a day Active IMMUNIZATIONS Vaccine Route Administration Date Status Comme nts COVID-19 Vaccine (Ziptask) Dose #1 Unknown 07/03/2020 Administered COVID-19 Vaccine (Ziptask) Dose #2 IM Intramuscular 07/31/2020 Administered SOCIAL HISTORY Tobacco Use: Social History Observation Description Date Details (start date - stop date) Never Smoker NA - NA Sex Assigned At : Social History Observation Description Sex Assigned At Unknown Tobacco Use/Smoking Question Answer Notes Are you a nonsmoker PROBLEMS Problem Type ICD Code Onset Dates Problem Status W/U Status Risk SNOMED Code Notes Problem Screening for breast cancer, unspecified (V76.10) 2015 Problem resolved confirmed Screening for malignant neoplasm of breast (719659704) [facility] [place] Problem 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 Problem resolved confirmed 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) [facility] [place]- Problem Liver steatosis (571.8) 2017 Problem resolved confirmed Chronic nonalcoholic liver disease (06437169) [facility] [place]- Problem External cerumen impaction (380.4) 2018 Problem resolved confirmed Impacted cerumen (04236909) [facility] [place]- Problem Osteomalacia (268.2) 2018 Problem resolved confirmed Osteomalacia (3726691) [facility] [place]- Problem Nonalcoholic fatty liver (571.8) 2016 Problem resolved confirmed Non-alcoholic fatty liver (350735543) [facility] [place]- Problem Insect bite (919.4) 2018 Problem resolved confirmed Insect bite (497840987) [facility] [place]- Problem Type II diabetes (250.00) 2015 Problem resolved confirmed Type II diabetes mellitus without complication (455848308) [facility] [place]- Problem Urinary tract infection (595.0) 2015 Problem resolved confirmed Urinary tract infection (37764300) [facility] [place]- Problem Foot swelling (729.81) 2018 Problem resolved confirmed Foot swelling (849106773) [facility] [place]- Problem Allergic rhinitis, unspecified cause (477.9) 2015 Problem resolved confirmed Allergic rhinitis (97188155) [facility] [facility] [place] Situational stress with anxiety (300.09) 2015 Problem resolved confirmed Anxiety state (150547331) [facility] [place]- Problem Other specified iron deficiency anemia (280.8) 2017 Problem resolved confirmed Iron deficiency anemia (39313223) [facility] [place] [facility] Problem Rib pain (786.50) 2017 Problem resolved confirmed Rib pain (419549380) [facility] [place]- Problem Elevated SGOT (AST) (790.4) 2015 Problem resolved confirmed Elevated levels of transaminase & lactic acid dehydrogenase (522672420) [facility] [place] [facility] Problem Chest pain (786.51) 2015 Problem resolved confirmed Chest pain (70813775) [facility] [place]- Problem Other abnormal findings on blood examination (790.99) 2015 Problem resolved confirmed Disorder of hematopoietic system (22186951) [facility] [place]- Problem Shortness of breath (786.09) 2016 Problem resolved confirmed Shortness of breath (951518918) [facility] [place]- Problem Hypotension, other (458.8) 2017 Problem resolved confirmed Hypotension (04439082) [facility] [place] [facility] Problem Iron deficiency anemia, unspecified (280.9) 2016 Problem resolved confirmed Iron deficiency anemia (82689329) [facility] [place] [facility] Problem Low back pain (724.2) 2015 Problem resolved confirmed Low back pain (739802669) [facility] [place] [facility] Problem Hyperlipidemia (272.4) 2017 Problem resolved confirmed Hyperlipidemia (42863833) [facility] [place] [facility] Problem Anemia, unspecified (285.9) 2018 Problem resolved confirmed Anemia (205953169) [facility] [place] [facility] Problem Sleep apnea (780.57) 2016 Problem resolved confirmed Sleep apnea (25583480) [facility] [place] [facility] Problem Urinary frequency (788.41) 2016 Problem resolved confirmed Urinary frequency (638071174) [facility] [place] [facility] Problem Dysuria (788.1) 2016 Problem resolved confirmed Dysuria (11863122) [facility] [place] [facility] Problem Diarrhea (787.91) 2018 Problem resolved confirmed Diarrhea (98902199) [facility] [place] [facility] Problem Cough (786.2) 2018 Problem resolved confirmed Cough (20412546) [facility] [place] [facility] Problem Type 2 diabetes (250.00) 2018 Active confirmed Type II diabetes mellitus without complication (146242680) [facility] [place] [facility] Problem GERD (530.81) 2017 Active confirmed Gastroesophageal reflux disease (134352575) [facility] [place] [facility] Problem Essential hypertension (401.1) 2018 Active confirmed Essential hypertension (50946974) [facility] [place] [facility] Problem Obstructive sleep apnea (780.57) 2016 Active confirmed Obstructive slee p apnea (01732985) [facility] [place] [facility] Problem Mitral valve regurgitation (424.0) 2015 Active confirmed Mitral valve regurgitation (06210231) [facility] [place] [facility] Problem IBS, diarrhea prominent type (564.1) 2018 Active confirmed Irritable bowel syndrome (12800168) [facility] [place] [facility] Problem Gastroesophageal reflux disease (530.81) 2017 Active confirmed Gastroesophageal reflux disease (652714860) [facility] [place] [facility] Problem Hypercholesterolemia (272.0) 2015 Active confirmed Hypercholesterol emia (10959167) [facility] [place] [facility] Problem Memory loss (780.93) 2018 Active confirmed Memory loss (33789253) [facility] [place] [facility] Problem Diabetes mellitus type 2, uncontrolled (E11.65) Active confirmed Diabetes mellit type 2 (03267307) Problem Seasonal allergies (J30.2) Active confirmed 937205933 Problem IBS (irritable bowel syndrome) (K58.9) Active confirmed Irritable bowel syndrome (30417511) Problem Hypercholesterolemia (E78.00) Active confirmed 05243793 Problem Pulmonary hypertension (I27.20) Active confirmed 33362204 Problem Memory loss (R41.3) Active confirmed 48 576176 Problem Essential hypertension (I10) Active confirmed 06603972 Problem Age-related osteoporosis without current pathological fracture (M81.0) Active confirmed 51512356 Problem Gastro-esophageal reflux disease without esophagitis (K21.9) Active confirmed Gastro-esophage al reflux disease without esophagitis (488554686) PLAN OF TREATMENT No Information Insurance Providers Payer Name Payer Address Payer Phone Subscriber Number Group Number Insured Name Patient Relationship to Insured Coverage Start Date Coverage End Date [facility] [address] [address] [place] [address] [id number] Jaki Hummel Self - patient is the insured MEDICATIONS ADMINISTERED Medication Instructions Date of Administration Dosage Notes dexAMETHasone 11/18/2021 30 mg MEDICAL (GENERAL) HISTORY Medical History History ICD Code Hypertension Hypercholesterolemia Mitral valve regurgitation GERD IBS Sleep apnea Type 2 diabetes Osteomalacia Chronic back pain Allergies; seasonal Skin cancer; squamous cell Depression H. Pylori, 06/2021 Surgical History Surgery Date(Month/Year) Squamous cell removed; right frontal are a 08/04/2015 x 2 09/1974, 09/1977 Laminectomy; lumbar region 05/2015 Meniscus repair; left 10/2012 Bone structure repair; 2nd toe bilateral 02/1986 Carpal tunnel; right 09/2011 Tarsal tunnel; left foot 07/1990 Tonsillectomy 1960 Hospitalization History Reason Date(Month/Year) Childbirth; C-sections x 2
--- OUTSIDE RECORDS SUMMARY | 2023-04-26 08:55 | XMS_ITS | Patient Health Record ---
Author Name Unknown Organization [facility] Address [address] [place] [id number] Care Team Providers Care Fish Technologist Name Role Phone JOAO COHEN KATLYN SAMSON Primary Care Provider Unavail krystin Gastelum MD, Edilber[facility] Candelaria [phone] ALLERGIES Allergen (clinical drug ingredient) Drug/Non Drug Allergy documented on EMR Reaction Allergy Type Onset Date Status hydrocodone Unknown Drug Allergy Activ e oxycodone Unknown Drug Allergy Active ibuprofen Unknown Drug Allergy Active Percodan Unknown Drug Allergy Active Compazine Unknown Drug Allergy Active REASON FOR REFERRAL No Information MEDICATIONS Medication SIG (Take, Route, Frequency, Duration) Notes Start Date End Date Status Triamcinolone 0.1% Ointment - - apply topically bid for 30 days 02/01/2017 Active Nizoral A-D shampoo 1 % apply as directe d twice a week for 4 weeks 02/01/2017 Active Lantus Active Duricef 500mg One PO orally BID fo r 5 days 08/04/2015 Unknown Bactroban 2 % apply to affected ar ea Bid for 30 days 12/31/2019 Active Lidex Apply to scalp QHS 12/12/2016 Active NIZORAL SHAMPOO 2 % Wash affected areas 3 times per week for prn 12/12/2016 Active SOCIAL HISTORY Sex Assigned At : Social History Observation Description Sex Assigned At Unknown PROBLEMS Problem Type ICD Code Onset Dates Problem Status W/U Status Risk SNOMED Code Notes Problem Psoriasis vulgaris (L40.0) Active confirmed Psoriasis vulgaris (434091960) PLAN OF TREATMENT No Information Insurance Providers Payer Name Payer Address Payer Phone Subscriber Number Group Number Insured Name Patient Relationship to Insured Coverage Start Date Coverage End Date [facility] [address] [address] [place] [address] [id number] JUAN EDWARDS Self - patient is the insured MEDICAL (GENERAL) HISTORY Medical History History ICD Code Basal Cell Carcinoma No Squamous Cell Carcinoma Yes Melanoma No history of keloid / scarring No problems with healing No Bruising No MRSA No Asthma No dizziness No Seizures No Diabetes Yes Cough No Hepatitis A No hepatitis B No Hepatitis C No AIDS No HIV No tuberculosis No blood transfusion No Anemia No Blood clots No Lupus No Atrial Fibrillation No Heart murmur No Artificial Valves No Pace maker No congestive heart failure No Heart stent No Irregular heartbeat No Emphysema No VentricularFibrillation No Heart bypass No bleeding problems No High Blood Pressure No artificial joints No Defibrillator No
--- NOTE | 2023-04-26 12:16 | N.ONRAD NP_ITS ---
Radiation Oncology New Patient Visit Patient: Jaki Hummel MR#: [id number] : 1945> Age: 77> Sex: Female> Dictated by: Kirk Weber Date of Service: 04/26/2023 Referring Physician(s) : Real Leyva MD Diagnosis: Breast, left, invasive ductal carcinoma, grade 1, stage pT1c pN1mi (SN), ER 95%, CT 90%, Ki-67 8%, HER2 negative Radiotherapy to date: Summary > No prior radiation therapy. Chief Complaint / History of Present Illness: Mrs. Hummel is a 77-year-old lady who underwent screening mammography 12/29/2022. A suspicious mass was seen in the outer far posterior left breast. The mass contained fine pleomorphic and coarse heterogeneous microcalcifications. It appeared to be about 2 cm in size. She underwent a needle biopsy which confirmed invasive ductal carcinoma. She was referred to Dr. Leyva who requested additional breast imaging. No other suspicious sites were found. The patient proceeded to a lumpectomy and sentinel node biopsy. The pathology revealed invasive ductal carcinoma, grade 1, greatest dimension of invasion 19 mm, ductal carcinoma in situ without an extensive intraductal component, no lymphatic or vascular invasion, margins negative. The closest margin on invasive cancer was 2.2 mm and the closest margin for DCIS was greater than 3 mm. A sentinel node biopsy was done. 5 lymph nodes were removed. 1 lymph node contained a micro metastasis. As noted, hormone receptors were positive. The patient has started anastrozole. Currently pending is a MammaPrint way which will affect the recommendations for systemic therapy. The patient is known to be BRCA positive. She is very concerned about her children because of that. Current Medications: ascorbic acid (vitamin C) 500 mg PO DAILY atorvastatin 20 mg PO DAILY 90 days Anastrozole 1 mg daily [B complex PO DAILY] blood sugar diagnostic (ZummZumm Ultra Test strips) USE DIRECTED coenzyme Q10 100 mg PO DAILY diltiazem HCl 180 mg PO DAILY 90 days diphenoxylate-atropine 2.5-0.025 mg 2.5 tabs PO QID PRN donepezil 10 mg PO DAILY 90 days enalapril maleate 20 mg PO BID 90 days insulin glargine (Lantus Solostar U-100 Insulin) inject subcutaneously 10units qam & 74units QHS mupirocin 2% 1 applic topical BID nitroglycerin 0.4 mg sublingual Q5M PRN omega 1-yep-qcp-fish oil 60-90-500 mg 1 cap PO DAILY omeprazole 20 mg PO BID 90 days pen needle, diabetic (Comfort EZ Pen [place]) inject insulin, daily. pioglitazone 30 mg PO DAILY 90 days [sulfurzyme PO BID] [true nature probiotic 12 strain PO] [Viatamin D3 PO 1XD] vitamin E (dl, acetate) 45 mg PO DAILY [Young living essentail oils Calcium Mag Zinc [place]uim PO] Allergies: aspirin [From Percodan] Allergy (Mild, Verified 02/28/23 07:57) unknown codeine Allergy (Mild, Verified 02/28/23 07:57) unknown hydrocodone Allergy (Mild, Verified 02/28/23 07:57) unknown loratadine Allergy (Mild, Verified 02/28/23 07:57) unknown oxycodone Allergy (Mild, Verified 02/28/23 07:57) unknown prochlorperazine [From Compazine] Allergy (Mild, Verified 02/28/23 07:57) unknown cortisone Allergy (Verified 02/28/23 07:57) Unknown Estrogens Allergy (Verified 02/28/23 07:57) unknown lovastatin Allergy (Verified 02/28/23 07:57) unknown prednisone Allergy (Verified 02/28/23 07:57) unknown NSAIDS (Non-Steroidal Anti-Inflamma Adverse Reaction (Mild, Verified 02/28/23 07:57) worsened heartburn insect stings Allergy (Uncoded 02/28/23 07:57) Tramadol Medical History: No history of collagen vascular disease. No previous radiation therapy. Medical problems include this lipidemia, GERD, irritable bowel syndrome, hypertension, type 2 diabetes. Surgical History: Multiple operations including the recent breast surgery, left ankle surgery, left knee surgery for meniscus, arthroscopy of the right knee, back surgery at L4 and L5, carpal tunnel surgery of the right wrist, cataract extraction with lens placement, 2 C-sections. Family History: Her mother of some type of carcinoma, possibly ovarian cancer. I think this is what led to the BRCA testing. Her father had skin cancer and no other cancers known in the family. She has 3 adult children. 1 has been tested for BRCA and is negative. She says the other 2 children are having difficulty getting tested. We are arranging assistance with that through [facility]. Social History: She is and lives with her . He gives her a great deal of emotional support. She is a never smoker and an occasional drinker. Current Complaints / Review of Systems: . General: No weight loss, fever, excessive fatigue.Neurologic: She has headaches which have worsened since her diagnosis of cancer. No blackouts, fainting, dizziness, lightheadedness, loss of coordination.Pulmonary: No unusual cough, hemoptysis, or sputum production. She states that she huffs and puffs at times. There are no other associated symptoms. She states that she has allergies which sometimes affect her breathing.Cardiovascular: She has an occasional flutter. No problems with chest pain, chest pressure, palpitations, peripheral edema.GI: She has irritable bowel syndrome and GERD. She is on medication for both with reasonably good results. No change in bowel habits or rectal bleeding.Genitourinary: Bladder function is normal with no complaints such as frequency, hesitancy, dysuria, pyuria, or hematuria.Musculoskeletal: She has aches and pains in the areas where she has had previous orthopedic surgery. She has no new or troublesome pains. Vital Signs: Performed on 04/26/2023 11:03 AM BMI - 38.776 kg/m2 (high), Height - 62 in, Weight - 212 lbs, Temperature - 96.7 f, Pulse - 74 /min, Respiration - 18 /min, O2 Sat - 96 %, Pain - 0, Fatigue - 0 and BP - 147/ 74 mm(hg)(high/). Physical Exam: General: Alert, oriented, no acute distress.Neck supple. No masses. No cervical or supraclavicular lymphadenopathy.Lungs: Clear to auscultation with no rales, rhonchi, or wheezes.Heart: Normal rhythm. No murmur gallop or rub.Breasts: The right breast is normal in appearance and free of masses. Left breast has ecchymosis in the areolar area. The lumpectomy incision is intact. There is no drainage or bleeding and no evidence of infection. No mass palpated in the tumor bed or elsewhere in the breast. No axillary lymphadenopathy on either side.Abdomen: No distention. No organomegaly or mass or tenderness.Musculoskeletal: Normal gait without assistance. No bone or joint tenderness. The left axillary incision is intact without evidence of inflammation or infection. No lymphedema of the left upper extremity. Performance Status: KPS 70 Pathology: See history Impression: Mrs. Hummel has an infiltrating ductal carcinoma of the left breast which has been treated with sentinel node biopsy and lumpectomy. She had clear margins on the lumpectomy and a micrometastasis in 1 of 5 sentinel nodes. She is currently on anastrozole. She is a candidate for postoperative radiation as part of breast conservation as well as because of the lymph node metastasis. I do not consider her a good candidate for hypofractionation because of the lymph node metastasis. I discussed a 6-week course of radiation with her, discussing the logistics of treatment, the side effects, and the possible complications. I emphasized that major issues are very uncommon but that there is a small chance of rib fracture, pneumonitis, lymphedema, and second malignancy. We are currently waiting on MammaPrint results so that a decision can be made about chemotherapy. I discussed that with her and her . Arrangements are being made for her to be seen in medical oncology next week. I discussed that if chemotherapy is given that it will come before radiation. Plan: Final plans after MammaPrint results are in. Signed by: 04/26/2023 12:15:04 PM <<Signature on File>> Time spent with patient: CPT Code: CPT Code:
== END 2023-05-04 23:59 | disposition home or self-care (01) ==
LOC: ONCMED 08:53
PROVIDERS: PCP Family Medicine; Visit Provider Specialist
DX: C50.412 Malignant neoplasm of upper-outer quadrant of left female breast (principal); Z17.0 Estrogen receptor positive status [ER+]; C77.9 Secondary and unspecified malignant neoplasm of lymph node, unspecified
CPT/HCPCS: 99215

== ENCOUNTER → 2023-05-01 14:48 | Outpatient (BNVA) | payer MEDICARE, SELFPAY | PROVIDERS: PCP Family Medicine; Visit Provider Internal Medicine Medical Oncology | DX: Z78.0 Asymptomatic menopausal state (principal); C50.512 Malignant neoplasm of lower-outer quadrant of left female breast; Z15.01 Genetic susceptibility to malignant neoplasm of breast; Z15.09 Genetic susceptibility to other malignant neoplasm; Z17.0 Estrogen receptor positive status [ER+]; Z79.811 Long term (current) use of aromatase inhibitors | CPT/HCPCS: 99214 ==

== ENCOUNTER 2023-05-09 08:13 | Outpatient (CLI) | payer MEDICARE, SELFPAY ==
--- NOTE | 2023-05-09 08:38 | US_ITS ---
WS: [id number] US pelv w/transvag [id number] HISTORY: BRCA2 POSTIVE COMPARISON: None available. Uterus: 5.1 cm x 3.8 cm x 3.0 cm. Small caliber slightly retroflexed uterus. Hypoechoic nodule in the posterior cervix is probably a nabothian cyst. Endometrium: 0.5 cm. Fluid-filled endometrium. There is no mass identified but there is fluid in the endometrial canal. Cervical stenosis should be considered. Right ovary: 1.4 cm x 1.1 cm x 1.9 cm. Atrophic ovary as expected. No adnexal mass. Left ovary: Nonvisualization. No free fluid in the cul-de-sac. IMPRESSION: 1. Atrophic uterus as expected. 2. Fluid-filled endometrial canal. The endometrium itself is thin. Component of cervical stenosis or occult mass obstructing the cervical canal are possibilities. No mass identified. 3. Atrophic RIGHT ovary. LEFT ovary not visualized.
== END 2023-05-09 08:14 | disposition home or self-care (01) ==
LOC: RAD 08:14
PROVIDERS: PCP Family Medicine; Visit Provider Nurse Practitioner Family
DX: Z78.0 Asymptomatic menopausal state (principal); C50.912 Malignant neoplasm of unspecified site of left female breast; N83.311 Acquired atrophy of right ovary; N85.8 Other specified noninflammatory disorders of uterus; Z13.820 Encounter for screening for osteoporosis; M85.88 Other specified disorders of bone density and structure, other site
CPT/HCPCS: 76830; 76856; 77080

== ENCOUNTER 2023-05-09 08:14 | Outpatient (CLI) | payer MEDICARE, SELFPAY ==
--- NOTE | 2023-05-09 13:30 | XR_ITS ---
WS: [id number] SCREENING DEXA SCAN [facility] CLINICAL INFORMATION: post-menopausal COMPARISON: 2018 FINDINGS: The L1-L4 bone mineral density measures 1.031 g/cm2. This corresponds to a T score score of -1.2 and Z score of -0.5. Left femoral neck bone mineral density measures 1.008 g/cm2. This corresponds to a T score of 0.0 and Z score of 1.0. Right femoral neck bone mineral density measures 1.033 g/cm2. This corresponds to a T score 0.2of and Z score of 1.2. Mean femoral neck bone mineral density measures 1.021 g/cm2. This corresponds to a T score of 0.1 and Z score of 1.1. IMPRESSION: Osteopenia lumbar spine. Normal bone mineralization femoral necks. Patient's FRAX calculated 10 year probability for major osteoporotic fracture is 10.9% and osteoporot ic hip fracture is 2.3%. Bone mineral density lumbar spine increased 3.8% Bone mineral density femoral necks decreased -2.9%
== END 2023-05-09 08:15 | disposition home or self-care (01) ==
LOC: RAD 08:14
PROVIDERS: PCP Family Medicine; Visit Provider Internal Medicine Medical Oncology
DX: Z13.820 Encounter for screening for osteoporosis (principal); Z78.0 Asymptomatic menopausal state; C50.912 Malignant neoplasm of unspecified site of left female breast; M85.88 Other specified disorders of bone density and structure, other site
CPT/HCPCS: 77080

== ENCOUNTER 2023-06-02 09:46 | Oncology outpatient (recurring) (ONCR) | payer MEDICARE, SELFPAY ==
--- OUTSIDE RECORDS SUMMARY | 2023-05-11 08:53 | XMS_ITS | Patient Health Record ---
Author Name Unknown Organization [facility] Address [address] [place] [address] Care Team Providers Care Grass Cutter Name Role Phone Veronica Bhakta Primary Care Provider [phone] Alexandrea Schuler Unavailable [phone] TANNA BRYAN Unavailable Unavailable ALLERGIES Allergen (clinical [...] days Active Probiotic - as directed Orally [place] Extra Strength Active OneTouch Ultra Test - [...] a day for 90 days Active Pen [place] 31G X 6 MM Use to inject [...] Active Pantothenic Acid B-5 Complex A ctive [place] 3 1200 MG 1 capsule Orally twice [...] Administration Date Status Comme nts COVID-19 Vaccine (Bablic) Dose #1 Unknown 07/03/2020 Administered COVID-19 Vaccine (Bablic) Dose #2 IM Intramuscular 07/31/2020 Administered SOCIAL HISTORY Tobacco Use: Social History Observation Description Date Details (start date - stop date) Never Smoker NA - NA Sex Assigned At : Social History Observation Description Sex Assigned At Unknown Tobacco Use/Smoking Question Answer Notes Are you a nonsmoker PROBLEMS Problem Type ICD Code Onset Dates Problem Status W/U Status Risk SNOMED Code Notes Problem Gastro-esophageal reflux disease without esophagitis (K21.9) Active confirmed Gastro-esophage al reflux disease without esophagitis (378398745) Problem Age-related osteoporosis without current pathological fracture (M81.0) Active confirmed 55406314 Problem Essential hypertension (I10) Active confirmed 15223083 Problem Memory loss (R41.3) Active confirmed 48 155927 Problem Pulmonary hypertension (I27.20) Active confirmed 05693639 Problem Hypercholesterolemia (E78.00) Active confirmed 08841503 Problem IBS (irritable bowel syndrome) (K58.9) Active confirmed Irritable bowel syndrome (43057482) Problem Seasonal allergies (J30.2) Active confirmed 916545116 Problem Diabetes mellitus type 2, uncontrolled (E11.65) Active confirmed Diabetes mellit us type 2 (88817706) Problem Memory loss (780.93) 2018 Active confirmed Memory loss (51203880) [facility] [place] Problem Hypercholesterolemia (272.0) 2015 Active confirmed Hypercholesterol emia (99227226) [facility] [place] Problem Gastroesophageal reflux disease (530.81) 2017 Active confirmed Gastroesophageal reflux disease (779530369) [facility] [place] Problem IBS, diarrhea prominent type (564.1) 2018 Active confirmed Irritable bowel syndrome (99567586) [facility] [place] Problem Mitral valve regurgitation (424.0) 2015 Active confirmed Mitral valve regurgitation (49352575) [facility] [place] Problem Obstructive sleep apnea (780.57) 2016 Active confirmed Obstructive slee p apnea (76436083) [facility] [place] Problem Essential hypertension (401.1) 2018 Active confirmed Essential hypertension (63030565) [facility] [place] Problem GERD (530.81) 2017 Active confirmed Gastroesophageal reflux disease (986078596) [facility] [place] Problem Type 2 diabetes (250.00) 2018 Active confirmed Type II diabetes mellitus without complication (687539942) [facility] [place] Problem Cough (786.2) 2018 Problem resolved confirmed Cough (10874340) [facility] [place] Problem Diarrhea (787.91) 2018 Problem resolved confirmed Diarrhea (08666629) [facility] [place] Problem Dysuria (788.1) 2016 Problem resolved confirmed Dysuria (09764242) [facility] [place] Problem Urinary frequency (788.41) 2016 Problem resolved confirmed Urinary frequency (677532505) [facility] [place] Problem Sleep apnea (780.57) 2016 Problem resolved confirmed Sleep apnea (76047752) [facility] [place] Problem Anemia, unspecified (285.9) 2018 Problem resolved confirmed Anemia (509689951) [facility] [place] Problem Hyperlipidemia (272.4) 2017 Problem resolved confirmed Hyperlipidemia (49951973) [facility] [place] Problem Low back pain (724.2) 2015 Problem resolved confirmed Low back pain (796595933) [facility] [place] Problem Iron deficiency anemia, unspecified (280.9) 2016 Problem resolved confirmed Iron deficiency anemia (04019059) [facility] [place] Problem Hypotension, other (458.8) 2017 Problem resolved confirmed Hypotension (15470266) [facility] [place] Problem Shortness of breath (786.09) 2016 Problem resolved confirmed Shortness of breath (428250942) [facility] [place] Problem Other abnormal findings on blood examination (790.99) 2015 Problem resolved confirmed Disorder of hematopoietic system (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) [facility] [place] Problem Chest pain (786.51) 2015 Problem resolved confirmed Chest pain (64486159) [facility] [place] Problem Elevated SGOT (AST) (790.4) 2015 Problem resolved confirmed Elevated levels of transaminase & lactic acid dehydrogenase (692889159) [facility] [place] Problem Rib pain (786.50) 2017 Problem resolved confirmed Rib pain (598074107) [facility] [place] Problem Other specified iron deficiency anemia (280.8) 2017 Problem resolved confirmed Iron deficiency anemia (02467771) [facility] [place] Problem Situational stress with anxiety (300.09) 2015 Problem resolved confirmed Anxiety state (630106933) [facility] [place] Allergic rhinitis, unspecified cause (477.9) 2015 Problem resolved confirmed Allergic rhinitis (72581483) [facility] [place] Foot swelling (729.81) 2018 Problem resolved confirmed Foot swelling (663147340) [facility] [place] Problem Urinary tract infection (595.0) 2015 Problem resolved confirmed Urinary tract infection (01778861) [facility] [place] Problem Type II diabetes (250.00) 2015 Problem resolved confirmed Type II diabetes mellitus without complication (598707400) [facility] Problem Insect bite (919.4) 2018 Problem resolved confirmed Insect bite (367053043) [facility] Problem Nonalcoholic fatty liver (571.8) 2016 Problem resolved confirmed Non-alcoholic fatty liver (075374379) [facility] Problem Osteomalacia (268.2) 2018 Problem resolved confirmed Osteomalacia (8931142) [facility] Problem External cerumen impaction (380.4) 2018 Problem resolved confirmed Impacted cerumen (17479675) [facility] Problem Liver steatosis (571.8) 2017 Problem resolved confirmed Chronic nonalcoholic liver disease (91209543) [facility] Problem 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 Problem resolved confirmed 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) [facility] [place] Screening for breast cancer, unspecified (V76.10) 2015 Problem resolved confirmed Screening for malignant neoplasm of breast (295869799) [facility] PLAN OF TREATMENT No Information Insurance Providers Payer Name Payer Address Payer Phone Subscriber Number Group Number Insured Name Patient Relationship to Insured Coverage Start Date Coverage End Date [facility] [address] [address] [place] [address] [id number] Jaki Hummel Self - patient is the insured MEDICATIONS ADMINISTERED Medication Instructions Date of Administration Dosage Notes dexAMETHasone 11/18/2021 30 mg MEDICAL (GENERAL) HISTORY Medical History History ICD Code Hypertension Hypercholesterolemia Mitral valve regurgitation GERD IBS Sleep apnea Type 2 diabetes Osteomalacia Chronic back pain Allergies; seasonal Skin cancer; squamous cell Depression H. Pylori, 06/2021 Surgical History Surgery Date(Month/Year) Tonsillectomy 1960 Squamous cell removed; right frontal are a 08/04/2015 x 2 09/1974, 09/1977 Laminectomy; lumbar region 05/2015 Meniscus repair; left 10/2012 Bone structure repair; 2nd toe bilateral 02/1986 Carpal tunnel; right 09/2011 Tarsal tunnel; left foot 07/1990 Hospitalization History Reason Date(Month/Year) Childbirth; C-sections x 2
--- OUTSIDE RECORDS SUMMARY | 2023-05-11 08:53 | XMS_ITS | Patient Health Record ---
Author Name Unknown Organization [facility] Address [address] [place] [id number] Care Team Providers Care Avian Keeper Name Role Phone JOAO COHEN KATLYN SAMSON Primary Care Provider Unavail krystin Gastelum MD, [facility] Unavailable ALLERGIES Allergen (clinical drug ingredient) Drug/Non Drug Allergy documented on EMR Reaction Allergy Type Onset Date Status oxycodone Unknown Drug Allergy Active ibuprofen Unknown Drug Allergy Active Percodan Unknown Drug Allergy Active Compazine Unknown Drug Allergy Active hydrocodone Unknown Drug Allergy Activ e REASON FOR REFERRAL No Information MEDICATIONS Medication [...] Psoriasis vulgaris (L40.0) Active confirmed Psoriasis vulgaris (928418995) PLAN OF TREATMENT No Information Insurance Providers Payer Name Payer Address Payer Phone Subscriber Number Group Number Insured Name Patient Relationship to Insured Coverage Start Date Coverage End Date [facility] [address] [address] [place] [address] [id number] JUAN EDWARDS Self - patient is the [...]
--- NOTE | 2023-05-11 10:54 | ONCRAD EPV_ITS ---
Radiation Oncology Established Patient Visit Patient: Jaki Hummel [id number] : 1945 Age: 77 Sex: Female> Account #: Dictated by: Dr. Kristie García Date of Service: 05/11/2023 Referring Physician(s) : Dr. Juvenal March and Dr. Real Leyva Diagnosis: Breast, left, invasive ductal carcinoma, grade 1, stage pT1c pN1mi (SN), ER 95%, NM 90%, Ki-67 8%, HER2 negative Radiotherapy to Date: None Current History: Mrs. Hummel is a 77-year-old lady who underwent screening mammography 12/29/2022. A suspicious mass was seen in the outer far posterior left breast. The mass contained fine pleomorphic and coarse heterogeneous microcalcifications. It appeared to be about 2 cm in size. She underwent a needle biopsy which confirmed invasive ductal carcinoma. She was referred to Dr. Leyva who requested additional breast imaging. No other suspicious sites were found. The patient proceeded to a lumpectomy and sentinel node biopsy. The pathology revealed invasive ductal carcinoma, grade 1, greatest dimension of invasion 19 mm, ductal carcinoma in situ without an extensive intraductal component, no lymphatic or vascular invasion, margins negative. The closest margin on invasive cancer was 2.2 mm and the closest margin for DCIS was greater than 3 mm. A sentinel node biopsy was done. 5 lymph nodes were removed. 1 lymph node contained a micro metastasis. As noted, hormone receptors were positive. The patient has started anastrozole. The patient is known to be BRCA positive. She is very concerned about her children because of that. She is scheduled at this time to have a hysterectomy next Monday. She is here today to discuss radiation. Current Medications: : ascorbic acid (vitamin C) 500 mg PO DAILY atorvastatin 20 mg PO DAILY 90 days Anastrozole 1 mg daily [B complex PO DAILY] blood sugar diagnostic ([employer] Ultra Test strips) USE DIRECTED coenzyme Q10 100 mg PO DAILY diltiazem HCl 180 mg PO DAILY 90 days diphenoxylate-atropine 2.5-0.025 mg 2.5 tabs PO QID PRN donepezil 10 mg PO DAILY 90 days enalapril maleate 20 mg PO BID 90 days insulin glargine (Lantus Solostar U-100 Insulin) inject subcutaneously 10units qam & 74units QHS mupirocin 2% 1 applic topical BID nitroglycerin 0.4 mg sublingual Q5M PRN omega 5-ztz-dfb-fish oil 60-90-500 mg 1 cap PO DAILY omeprazole 20 mg PO BID 90 days pen needle, diabetic (Comfort EZ Pen [place]) inject insulin, daily. pioglitazone 30 mg PO DAILY 90 days [sulfurzyme PO BID] [true nature probiotic 12 strain PO] [Viatamin D3 PO 1XD] vitamin E (dl, acetate) 45 mg PO DAILY [[employer] essentail oils Calcium Mag Zinc Pottassuim PO] Allergies: aspirin [From Percodan] Allergy (Mild, Verified 02/28/23 07:57) unknown codeine Allergy (Mild, Verified 02/28/23 07:57) unknown hydrocodone Allergy (Mild, Verified 02/28/23 07:57) unknown loratadine Allergy (Mild, Verified 02/28/23 07:57) unknown oxycodone Allergy (Mild, Verified 02/28/23 07:57) unknown prochlorperazine [From Compazine] Allergy (Mild, Verified 02/28/23 07:57) unknown cortisone Allergy (Verified 02/28/23 07:57) Unknown Estrogens Allergy (Verified 02/28/23 07:57) unknown lovastatin Allergy (Verified 02/28/23 07:57) unknown prednisone Allergy (Verified 02/28/23 07:57) unknown NSAIDS (Non-Steroidal Anti-Inflamma Adverse Reaction (Mild, Verified 02/28/23 07:57) worsened heartburn insect stings Allergy (Uncoded 02/28/23 07:57) Tramadol Current Complaints / Review of Systems: . Vital Signs: Performed on 05/11/2023 9:04 AM BMI - 38.337 kg/m2 (high), Height - 62 in, Weight - 209.6 lbs, Temperature - 97.8 f, Pulse - 85 /min, Respiration - 18 /min, O2 Sat - 96 %, Pain - 2, Fatigue - 5 and BP - 149/ 62 mm(hg)(high/low). Physical Exam: General: Alert and oriented x 3. No acute distress. HEENT: Normocephalic, atraumatic. Extraocular Movements Intact: Pupils Equal, Round, Reactive to Light: Sclerae anicteric. LUNGS respiratory rate is regular nonlabored. HEART: Regular rate and rhythm, Breast exam L: No tenderness was noted. The incision is in the inframammary fold in the outer quadrant. It appears to be nicely healed. There is no erythema or drainage.. ABDOMEN: Soft, nontender, mildly distended without masses or organomegaly. EXTREMITIES: No peripheral edema is identified. Limited motor and sensory examination are grossly intact and symmetric bilaterally. NEUROLOGIC: Alert and oriented x 3. Gait speech within normal limits. Performance Status: KPS 100 Lab: None pending. Pathology: Imaging: See HPI Impression: Stage T1c N1 (mi) Plan: Initially Ms. Hummel was hesitant to proceed with any treatment. She understands that the studies that have been done so for show that she does not need chemotherapy. I reviewed with her how the studies were to determine her risk of recurrence distantly. We reviewed the risk of local recurrence based on the surgery that she has had versus mastectomy versus radiation and surgery. After reviewing these percentages she understands that the local regional control is based on the radiation being delivered after the surgery. We discussed the fact that she had 1 node that had micrometastasis and 4 additional nodes which were negative. No additional treatment will be needed to the axillary area or the supraclavicular area she does not meet the standards to treat these areas. I reviewed with her that the radiation will be just deferred to the breast in order to convert the surgery that she has had to a mastectomy. She verbalized understanding of all this. We reviewed the various treatment plans ranging from the traditional 6 weeks to the more hypofractionated courses which the facilities in [place] have been using for over a decade. At this point she is agreeable to proceed with 4 weeks of treatment. I reviewed with her how the first 16 treatments will be delivered to the whole breast and the final 4 would be to a smaller volume. We discussed the risk and side effects both acute and long-term. I reviewed with her the simulation process and the daily treatment regiment. We also discussed the timing. She is concerned initially about starting her treatments when she is having surgery but after considering that come June 05 her deductible will be unmet again she was willing to proceed with simulation and having everything ready to start as soon as she can actually lay on the table after her surgery. Will schedule her to return Monday for simulation. She will have her surgery on Monday. The week after that she will need to come in to have her vo checked and if she is able to lay on the table and all of her treatment has been prior approved she can start her treatments then. If she needs to wait a few days to start because of her abdominal surgery that is up to her. At this point she is happy with the current plan and she has agreed to undergo treatment. She will return next Monday and I will get her plan done prior to leaving next week. Signed by: 05/11/2023 10:53:59 AM <<Signature on File>> Time spent with patient:45 CPT Code: CPT Code:
--- NOTE | 2023-05-30 11:01 | ONCRAD TMN_ITS ---
Radiation Oncology Weekly Treatment Management Patient: Jaki Hummel MR#: [id number] : 1945 Attending Physician: Kirk Weber Date of Service: 05/30/2023 Referring Physician(s) : Juvenal March M.D. Diagnosis: C50.912 - Malignant neoplasm of unspecified site of left female breast, Diagnosed 04/12/2023 (Active) Radiotherapy to date: Course: Left Breast 2022, Treatment Site: [place] [address], Ref. ID: [id number], Energy: 15X/6X, Dose/Fx (cGy): 266, #Fx: , Dose Correction (cGy): 0, Total Dose (cGy): 266, Start Date: 05/30/2023, Elapsed Days: 0 Reason for visit: The patient is being seen today as part of their regularly scheduled weekly on treatment visits to assess for acute toxicities from radiotherapy. Review of Systems: Her first treatment went well today. Based on imaging at the console and offline review the set up is accurate. She is doing well from her surgery and has no complaints regarding the breast. She had a hysterectomy per Dr. Avila on 05/19/2023. She also tolerated that well and has no complaints. Vital Signs: Performed on 05/30/2023 10:09 AM BMI - 38.263 kg/m2 (high), Height - 62 in, Weight - 209.2 lbs, Temperature - 97.5 f, Pulse - 80 /min, Respiration - 16 /min, O2 Sat - 96 %, Pain - 0, Fatigue - 4 and BP - 146/ 55 mm(hg)(high/low). Physical Exam: Alert, oriented, no distress. She is ambulatory without assistance. Imaging: Radiation therapy imaging related to accurate target localization (i.e. KV, MV and CBCT) was reviewed. Appropriate changes, if any, were made to ensure treatment accuracy. Plan: Continue treatment per plan. Obtain the hysterectomy path report from [facility]. I discussed the potential side effects related to the breast that may occur during treatment. She is continuing anastrozole during radiation. She says that she has follow-ups with both Dr. Avila and Dr. Leyva on June 13. Signed by: Kirk Weber 05/30/2023 10:59:42 AM
== END 2023-06-04 23:59 | disposition home or self-care (01) ==
PROVIDERS: PCP Family Medicine; Visit Provider Specialist
DX: Z51.0 Encounter for antineoplastic radiation therapy (principal); C50.412 Malignant neoplasm of upper-outer quadrant of left female breast
CPT/HCPCS: 77280; 77295; 77300; 77334; 77387; 77412; 99024; 99215

== ENCOUNTER 2023-06-29 09:39 | Oncology outpatient (recurring) (ONCR) | payer MEDICARE, SELFPAY ==
--- OUTSIDE RECORDS SUMMARY | 2023-06-06 09:42 | XMS_ITS | Patient Health Record ---
Author Name Unknown Organization [facility] Address [address] [place] [address] Care Team Providers Care Senior Systems Engineer Name Role Phone Veronica Bhakta Primary Care Provider Alexandrea Schuler Unavailable [phone] TANNA BRYAN Unavailable Unavailable ALLERGIES Allergen (clinical [...] days Active Probiotic - as directed Orally [place] Extra Strength Active OneTouch Ultra Test - [...] a day for 90 days Active Pen [place] 31G X 6 MM Use to inject [...] Active Pantothenic Acid B-5 Complex A ctive [place] 3 1200 MG 1 capsule Orally twice [...] Administration Date Status Comme nts COVID-19 Vaccine (Mozy) Dose #1 Unknown 07/03/2020 Administered COVID-19 Vaccine (Mozy) Dose #2 IM Intramuscular 07/31/2020 Administered SOCIAL HISTORY Tobacco Use: Social History Observation Description Date Details (start date - stop date) Never Smoker NA - NA Sex Assigned At : Social History Observation Description Sex Assigned At Unknown Tobacco Use/Smoking Question Answer Notes Are you a nonsmoker PROBLEMS Problem Type ICD Code Onset Dates Problem Status W/U Status Risk SNOMED Code Notes Problem Age-related osteoporosis without current pathological fracture (M81.0) Active confirmed 69126718 Problem Memory loss (R41.3) Active confirmed 48 323078 Problem Pulmonary hypertension (I27.20) Active confirmed 89444610 Problem Hypercholesterolemia (E78.00) Active confirmed 76496240 Problem IBS (irritable bowel syndrome) (K58.9) Active confirmed Irritable bowel syndrome (63123828) Problem Seasonal allergies (J30.2) Active confirmed 734127449 Problem Memory loss (780.93) 2018 Active confirmed Memory loss (05393427) [facility]- Problem Hypercholesterolemia (272.0) 2015 Active confirmed Hypercholesterol emia (11408873) [facility] 5911- Problem Gastroesophageal reflux disease (530.81) 2017 Active confirmed Gastroesophageal reflux disease (770712804) [facility] Problem IBS, diarrhea prominent type (564.1) 2018 Active confirmed Irritable bowel syndrome (77505307) [facility] 5911- Problem Mitral valve regurgitation (424.0) 2015 Active confirmed Mitral valve regurgitation (35956037) [facility] 5911- Problem Obstructive sleep apnea (780.57) 2016 Active confirmed Obstructive slee p apnea (17064572) [facility] 5911- Problem Essential hypertension (401.1) 2018 Active confirmed Essential hypertension (54715728) [facility] 5911- Problem GERD (530.81) 2017 Active confirmed Gastroesophageal reflux disease (582918557) [facility] 5911- Problem Type 2 diabetes (250.00) 2018 Active confirmed Type II diabetes mellitus without complication (155066526) [facility] 5911- Problem Cough (786.2) 2018 Problem resolved confirmed Cough (80728507) [facility] 5911- Problem Diarrhea (787.91) 2018 Problem resolved confirmed Diarrhea (62429651) [facility] 5911- Problem Dysuria (788.1) 2016 Problem resolved confirmed Dysuria (28198828) [facility] 5911- Problem Urinary frequency (788.41) 2016 Problem resolved confirmed Urinary frequency (300624785) [facility] 5911- Problem Sleep apnea (780.57) 2016 Problem resolved confirmed Sleep apnea (81257635) [facility] 5911- Problem Anemia, unspecified (285.9) 2018 Problem resolved confirmed Anemia (288330828) [facility] 5911- Problem Hyperlipidemia (272.4) 2017 Problem resolved confirmed Hyperlipidemia (78873762) [facility] 5911- Problem Low back pain (724.2) 2015 Problem resolved confirmed Low back pain (062494992) [facility] 5911- Problem Iron deficiency anemia, unspecified (280.9) 2016 Problem resolved confirmed Iron deficiency anemia (37070430) [facility] Problem Hypotension, other (458.8) 2017 Problem resolved confirmed Hypotension (09832044) [facility] Problem Shortness of breath (786.09) 2016 Problem resolved confirmed Shortness of breath (217002196) [facility] Problem Other abnormal findings on blood examination (790.99) 2015 Problem resolved confirmed Disorder of hematopoietic system (79723743) [facility] Problem Chest pain (786.51) 2015 Problem resolved confirmed Chest pain (09550967) [facility] Problem Elevated SGOT (AST) (790.4) 2015 Problem resolved confirmed Elevated levels of transaminase & lactic acid dehydrogenase (710743156) [facility] Problem Rib pain (786.50) 2017 Problem resolved confirmed Rib pain (654913943) [facility] Problem Other specified iron deficiency anemia (280.8) 2017 Problem resolved confirmed Iron deficiency anemia (38833588) [facility] Problem Situational stress with anxiety (300.09) 2015 Problem resolved confirmed Anxiety state (938193422) [facility] Problem Allergic rhinitis, unspecified cause (477.9) 2015 Problem resolved confirmed Allergic rhinitis (74916180) [facility] 5911- Problem Foot swelling (729.81) 2018 Problem resolved confirmed Foot swelling (396543313) [facility] 5911- Problem Urinary tract infection (595.0) 2015 Problem resolved confirmed Urinary tract infection (62231777) [facility] Problem Type II diabetes (250.00) 2015 Problem resolved confirmed Type II diabetes mellitus without complication (559638268) [facility] Problem Insect bite (919.4) 2018 Problem resolved confirmed Insect bite (618399472) [facility] Problem Nonalcoholic fatty liver (571.8) 2016 Problem resolved confirmed Non-alcoholic fatty liver (711818329) [facility] Problem Diabetes mellitus type 2, uncontrolled (E11.65) Active confirmed Diabetes [facility] heart type 2 (65473676) Problem Essential hypertension (I10) Active confirmed 97111186 Problem Gastro-esophageal reflux disease without esophagitis (K21.9) Active confirmed Gastro-esophage al reflux disease without esophagitis (476657978) Problem Osteomalacia (268.2) 2018 Problem resolved confirmed Osteomalacia (1492977) [facility] 5911- Problem External cerumen impaction (380.4) 2018 Problem resolved confirmed Impacted cerumen (92609759) [facility] 5911- Problem Liver steatosis (571.8) 2017 Problem resolved confirmed Chronic nonalcoholic liver disease (82720009) [facility]- Problem 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 Problem resolved confirmed 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) [facility]- Problem Screening for breast cancer, unspecified (V76.10) 2015 Problem resolved confirmed Screening for malignant neoplasm of breast (476101556) [facility] 59[facility]- PLAN OF TREATMENT No Information Insurance Providers Payer Name Payer Address Payer Phone Subscriber Number Group Number Insured Name Patient Relationship to Insured Coverage Start Date Coverage End Date [facility] [address] [address] [place] [address] [phone] [id number] Jaki Hummel Self - patient is the insured MEDICATIONS ADMINISTERED Medication Instructions Date of Administration Dosage Notes dexAMETHasone 11/18/2021 30 mg MEDICAL (GENERAL) HISTORY Medical History History ICD Code Hypertension Hypercholesterolemia Mitral valve regurgitation GERD IBS Sleep apnea Type 2 diabetes Osteomalacia Chronic back pain Allergies; seasonal Skin cancer; squamous cell Depression H. Pylori, 06/2021 Surgical History Surgery Date(Month/Year) Tonsillectomy 1960 Tarsal tunnel; left foot 07/1990 Carpal tunnel; right 09/2011 Bone structure repair; 2nd toe bilateral 02/1986 Meniscus repair; left 10/2012 Laminectomy; lumbar region 05/2015 x 2 09/1974, 09/1977 Squamous cell removed; right frontal are a 08/04/2015 Hospitalization History Reason Date(Month/Year) Childbirth; C-sections x 2
--- OUTSIDE RECORDS SUMMARY | 2023-06-06 09:42 | XMS_ITS | Patient Health Record ---
Author Name Unknown Organization [facility] Address [address] [place] [phone] Care Team Providers Care Tutorial Laboratory Supervisor Name Role Phone JOAO COHEN KATLYN SAMSON Primary Care Provider Unavail krystin Gastelum MD, [facility] Candelaria [phone] ALLERGIES Allergen (clinical drug ingredient) Drug/Non [...] Psoriasis vulgaris (L40.0) Active confirmed Psoriasis vulgaris (956783290) PLAN OF TREATMENT No Information Insurance Providers Payer Name Payer Address Payer Phone Subscriber Number Group Number Insured Name Patient Relationship to Insured Coverage Start Date Coverage End Date [facility] [address] [address] [place] [address] [id number] JUAN EDWARDS Self - patient is the [...]
--- NOTE | 2023-06-06 12:13 | ONCRAD TMN_ITS ---
Radiation Oncology Weekly Treatment Management Patient: Shaheed Pollack> MR#: [id number] : 1945> Attending Physician: Darryl Brink Date of Service: 06/06/2023 Referring Physician(s) : Juvenal March M.D. Diagnosis: C50.912 - Malignant neoplasm of unspecified site of left female breast, Diagnosed 04/12/2023 (Active) Radiotherapy to date: Course: Left Breast 2022, [facility], Ref. ID: [id number], Energy: 15X/6X, Dose/Fx (cGy): 266, #Fx: 5 / 16, Dose Correction (cGy): 0, Total Dose (cGy): 1,330, Start Date: 05/30/2023, Elapsed Days: 7 Reason for visit: The patient is being seen today as part of their regularly scheduled weekly on treatment visits to assess for acute toxicities from radiotherapy. Review of Systems: She has no breast sxs. She has stable energy level. She is aloe vera and lanolin cream. She does have chronic nausea for years of unclear source. Energy level is ok Vital Signs: Performed on 06/06/2023 10:07 AM BMI - 38.081 kg/m2 (high), Height - 62 in, Weight - 208.2 lbs, Temperature - 97.4 f, Pulse - 83 /min, Respiration - 18 /min, O2 Sat - 97 %, Pain - 2, Fatigue - 0 and BP - 142/ 60 mm(hg)(high/low). Physical Exam: omitted. Imaging: Radiation therapy imaging related to accurate target localization (i.e. KV, MV and CBCT) was reviewed. Appropriate changes, if any, were made to ensure treatment accuracy. Plan: Good tolerance of treatment. Continue as planned. Signed by: Darryl Brink 06/06/2023 1:28:19 PM Telemedicine Consent Patient seen today via Telemedicine by agreement and consent of patient. Telemedicine technology used during the visit include audio and, as available, review of images. This patient encounter is appropriate and reasonable under the circumstances given the patient???s particular presentation at this time. The patient has been advised of the potential risks and limitations of this mode of treatment (including but not limited to the absence of in-person examination) and has agreed to be treated in a remote fashion in spite of them. Any and all of the patient???s/patient???s family???s questions on this issue have been answered and I have made no promises or guarantees to the patient. The patient has also been advised to contact this office for worsening conditions or problems, and seek emergency medical treatment and/or call 911 if the patient deems either necessary.
--- NOTE | 2023-06-14 10:40 | ONCRAD TMN_ITS ---
Radiation Oncology Weekly Treatment Management Patient: Jaki Hummel MR#: [id number] : 1945 Attending Physician: Dr. Kristie García Date of Service: 06/14/2023 Fractions: 10 out of 20 total Referring Physician(s) : Juvenal March M.D. Diagnosis: C50.912 - Malignant neoplasm of unspecified site of left female breast, Diagnosed 04/12/2023 (Active) Radiotherapy to date: Course: Left Breast 2022, Treatment Site: [facility], Ref. ID: [id number], Energy: 15X/6X, Dose/Fx (cGy): 266, #Fx: , Dose Correction (cGy): 0, Total Dose (cGy): 2,660, Start Date: 05/30/2023, Elapsed Days: 15 Reason for visit: The patient is being seen today as part of their regularly scheduled weekly on treatment visits to assess for acute toxicities from radiotherapy. Review of Systems: Patient is in good spirits. She has noticed that the tissue has become a little pruritic. Vital Signs: Performed on 06/14/2023 10:26 AM BMI - 38.19 kg/m2 (high), Height - 62 in, Weight - 208.8 lbs, Temperature - 97.4 f, Pulse - 84 /min, Respiration - 16 /min, O2 Sat - 97 %, Pain - 0, Fatigue - 5 and BP - 137/ 59 mm(hg)(/low). Physical Exam: On examination the skin is really without changes. She still has some erythema in the inframammary fold which she had a prior to starting treatment from yeast overgrowth. There is no erythema or hyperpigmentation. She does have a 1 to 2 mm raised flesh-colored nodule that is, in the treatment field near the medial edge. Will keep an eye on that. Imaging: Radiation therapy imaging related to accurate target localization (i.e. KV, MV and CBCT) was reviewed. Appropriate changes, if any, were made to ensure treatment accuracy. Plan: Continue with her treatments as planned. I have asked her to go ahead and continue to use her regiment in the inframammary fold. We talked about using cortisone cream if the skin should become more pruritic. Signed by: Dr. Kristie García 06/14/2023 10:39:28 AM
--- NOTE | 2023-06-20 10:25 | ONCRAD TMN_ITS ---
Radiation Oncology Weekly Treatment Management Patient: Jaki Hummel MR#: [id number] : 1945 Attending Physician: Dr. Kristie García Date of Service: 06/20/2023 Fractions: 14 of 20 to the left breast Referring Physician(s) : Juvenal March M.D. Diagnosis: C50.912 - Malignant neoplasm of unspecified site of left female breast, Diagnosed 04/12/2023 (Active) Radiotherapy to date: Course: Left Breast 2022, Treatment Site: [facility], Ref. ID: [id number], Energy: 15X/6X, Dose/Fx (cGy): 266, #Fx: 14 / 16, Dose Correction (cGy): 0, Total Dose (cGy): 3,724, Start Date: 05/30/2023, Elapsed Days: 21 Reason for visit: The patient is being seen today as part of their regularly scheduled weekly on treatment visits to assess for acute toxicities from radiotherapy. Review of Systems: Patient denies any complaints today Vital Signs: Performed on 06/20/2023 9:50 AM BMI - 38.593 kg/m2 (high), Height - 62 in, Weight - 211 lbs, Temperature - 98.0 f, Pulse - 75 /min, Respiration - 18 /min, O2 Sat - 97 %, Pain - 0, Fatigue - 5 and BP - 134/ 65 mm(hg). Physical Exam: On examination her skin is just mildly erythematous. There is no evidence of moist or dry desquamation. The inframammary fold remains the most erythematous due to her yeast overgrowth Imaging: Radiation therapy imaging related to accurate target localization (i.e. KV, MV and CBCT) was reviewed. Appropriate changes, if any, were made to ensure treatment accuracy. Plan: Will continue with her treatments as planned. She will continue with her current skin care. Signed by: Dr. Kristie García 06/20/2023 10:24:33 AM
--- NOTE | 2023-06-27 10:45 | ONCRAD TMN_ITS ---
Radiation Oncology Weekly Treatment Management Patient: Shaheed Pollack> MR#: [id number] : 1945> Attending Physician: Dr. Kristie García Date of Service: 06/27/2023 Fractions: 16 of 16 with whole breast and 2 out of 4 to the boost Referring Physician(s) : Juvenal March M.D. Diagnosis: C50.912 - Malignant neoplasm of unspecified site of left female breast, Diagnosed 04/12/2023 (Active) Radiotherapy to date: Course: Left Breast 2022, Treatment Site: [facility], Ref. ID: [id number], Energy: 15X/6X, Dose/Fx (cGy): 266, #Fx: 16 / 16, Dose Correction (cGy): 0, Total Dose (cGy): 4,256, Start Date: 05/30/2023, Elapsed Days: 23 Course: Left Breast 2022, Treatment Site: Boost 10Gy, Ref. ID: [id number], Energy: 15X/6X, Dose/Fx (cGy): 250, #Fx: 2 / 4, Dose Correction (cGy): 0, Total Dose (cGy): 500, Start Date: 06/23/2023, Elapsed Days: 4 Reason for visit: The patient is being seen today as part of their regularly scheduled weekly on treatment visits to assess for acute toxicities from radiotherapy. Review of Systems: Since Monday she has had increasing soreness around the nipple and in the inframammary fold. She also felt like the axillary area was quite swollen and she said heart is rock. She even has some pain that extends around to the thorax on the posterior side clear to the midline along the scapula. Vital Signs: Performed on 06/27/2023 9:50 AM BMI - 38.958 kg/m2 (high), Height - 62 in, Weight - 213 lbs, Temperature - 97.3 f, Pulse - 70 /min, Respiration - 18 /min, O2 Sat - 96 %, Pain - 10, Fatigue - 5 and BP - 145/ 58 mm(hg)(high/low). Physical Exam: On examination her skin is erythematous and she has developed a dry desquamation of the nipple. She is also developed the beginnings of desquamation in the inframammary fold. The axilla today is soft. She is tender across her back but there are no skin changes. Imaging: Radiation therapy imaging related to accurate target localization (i.e. KV, MV and CBCT) was reviewed. Appropriate changes, if any, were made to ensure treatment accuracy. Plan: At this point we talked about how she had only 3 treatments remaining today's included. She did agree to today's treatment. I have sent a prescription for Silvadene for her to use and given her the instructions on how to use this. We talked about how she will only have 2 more treatments remaining. I told her that the area on her back is most likely because she has been holding herself differently and its musculoskeletal related. At this point she has agreed to go ahead and complete her treatments. She will pick up driver her Silvadene today. Signed by: Dr. Kristie García 06/27/2023 10:44:22 AM
--- NOTE | 2023-07-03 10:43 | N.ONRD TS_ITS ---
Radiation Oncology Treatment Summary Patient: Shaheed>Mariana MR#: [id number] : 1945> Age: 77> Sex: Female Dictated by: Kraig Cash Date of Service: 06/29/2023 Referring Physician(s) : Juvenal March M.D. Diagnosis: C50.912 - Malignant neoplasm of unspecified site of left female breast, Diagnosed 04/12/2023 (Active) Radiotherapy to Date: Course: Left Breast 2022, Treatment Site: [facility], Ref. ID: [id number], Energy: 15X/6X, Dose/Fx (cGy): 266, #Fx: 16 / 16, Dose Correction (cGy): 0, Total Dose (cGy): 4,256, Start Date: 05/30/2023, End Date: 06/22/2023, Elapsed Days: 23 Treatment Site: [facility], Ref. ID: [id number], Energy: 15X/6X, Dose/Fx (cGy): 250, #Fx: 4 / 4, Dose Correction (cGy): 0, Total Dose (cGy): 1,000, Start Date: 06/23/2023, End Date: 06/29/2023, Elapsed Days: 6 Clinical Summary: The patient tolerated RT well. Plan: End of treatment today. Continue on the above medication until the skin reaction resolves. Follow up in one month. Signed by: Kraig Cash>07/03/2023 10:41:45 AM <<Signature on File>>
== END 2023-07-05 23:59 | disposition home or self-care (01) ==
PROVIDERS: PCP Family Medicine; Visit Provider Radiology Radiation Oncology
DX: Z51.0 Encounter for antineoplastic radiation therapy (principal); C50.412 Malignant neoplasm of upper-outer quadrant of left female breast; C77.9 Secondary and unspecified malignant neoplasm of lymph node, unspecified; Z17.0 Estrogen receptor positive status [ER+]
CPT/HCPCS: 77336; 77387; 77412; 80053; 80061; 82607; 83036; 85025; 99024

== ENCOUNTER 2023-07-14 09:42 | Outpatient (CLI) | payer MEDICARE, SELFPAY ==
--- NOTE | 2023-07-14 10:00 | NM_ITS ---
WS: [id number] NUCLEAR MEDICINE HIDA SCAN WITH GALLBLADDER EJECTION FRACTION HISTORY: ruq pain tenderness COMPARISON: 01/31/2018, TECHNIQUE: The patient was intravenously injected with 7.5 mCi of TC99m Mebrofenin. Immediate imaging over the right upper quadrant was followed by 5 minute image and additional images for a total of 60 minutes. Normal uptake of radiotracer throughout the liver. Activity identified in the gallbladder at 30 minutes and well distended by 60 minutes. Activity in the proximal small bowel was seen by 10 minutes. Good washout of the radiotracer from the liver by 60 minutes. The patient then drank 8 ounces of Ensure Plus. Ejection fraction at 60 minutes was 62%. Normal GB ej ection fraction is 35-75%. Post fatty meal symptoms: None. IMPRESSION: 1. Normal HIDA scan. 2. Normal gallbladder ejection fraction.
== END 2023-07-14 09:43 | disposition home or self-care (01) ==
PROVIDERS: PCP Family Medicine; Visit Provider Family Medicine
DX: R10.11 Right upper quadrant pain (principal); R10.811 Right upper quadrant abdominal tenderness
CPT/HCPCS: 78227; 80053; 80061; 82607; 83036; 85025; A9537

== ENCOUNTER 2023-07-27 09:24 | Oncology outpatient (recurring) (ONCR) | payer MEDICARE, SELFPAY ==
[2023-07-25 15:07] LABS: Basophils % 0.5 %; Eosinophils # 0.1 10^3/uL (0.0-0.8); Eosinophils % 1.1 %; Hematocrit 38.3 % (36-47); Lymphocytes % 32.3 %; Mean Corpuscular HGB Conc 32.1 g/dL (30-55); Mean Corpuscular Hemoglobin 28.2 pg (27-33); Mean Corpuscular Volume 87.8 fl (85-98); Mean Platelet Volume 10.1 fL (7.4-10.4); Monocytes # 0.5 10^3/uL (0.2-0.9); Monocytes % 7.6 %; Neutrophils # 3.59 10^3/uL (1.8-7.7); Neutrophils % 58.2 %; Nucleated Red Blood Cells % 0 %; Platelet Count 286 10^3/cmm (157-399); Red Blood Count 4.36 10^6/uL (3.85-5.65); White Blood Count 6.17 10^3/uL (3.29-11.43)
[2023-07-25 15:36] LABS: Alanine Aminotransferase 15 U/L (0-33); Albumin Level 4.3 g/dL (3.5-5.2); Alkaline Phosphatase 66 U/L (35-105); Anion Gap 19.1 (5-19); Aspartate Amino Transferase 12 U/L (0-32); Blood Urea Nitrogen 20 mg/dL (8-23); Calcium 9.2 mg/dL (8.5-10.5); Carbon Dioxide 20 mmol/L (22-29); Chloride 101 mmol/L (98-107); Creatinine Clr Calc Pharmacy 65.2069; Globulin 2.5 g/dL (1.3-4.6); Glucose 157 mg/dL (65-115); Osmolality Calculated 288 mOsm/kg (285-295); Potassium 4.1 mmol/L (3.5-5.1); Sodium 136 mmol/L (136-145); Total Bilirubin 0.2 mg/dL (0.15-1.2); Total Protein 6.8 g/dL (6.6-8.7)
[2023-07-25 16:32] LABS: 25 Hydroxy Vitamin D 31 ng/mL (30-100)
--- NOTE | 2023-07-27 09:55 | ONCRAD EPV_ITS ---
Radiation Oncology Established Patient Visit Patient: Jaki Hummel [id number] : 1945 Age: 77 Sex: Female Dictated by: Kraig Cash Date of Service: 07/27/2023 Referring Physician(s) : Juvenal March M.D. Diagnosis: C50.912 - Malignant neoplasm of unspecified site of left female breast, Diagnosed 04/12/2023 (Active) Radiotherapy to Date: Course: Left Breast 2022, Treatment Site: [facility], Ref. ID: [id number], Energy: 15X/6X, Dose/Fx (cGy): 26, #Fx: 16 / 16, Dose Correction (cGy): 0 Total Dose Delivered (cGy): 4,256, Start Date: 05/30/2023, End Date: 06/22/2023, Elapsed Days: 23 Left Breast 2022, Treatment Site: Boost 10Gy, Ref. ID: [id number], Energy: 15X/6X, Dose/Fx (cGy): 250, #Fx: 4 / 4, Dose Correction (cGy): 0, Total Dose Delivered (cGy): 1,000, Start Date: 06/23/2023, End Date: 06/29/2023, Elapsed Days: 6 Current History: Patient reports that her fatigue has improved over the past month. She is using moisturizers and denies any skin irritation or pain. She has no complaints of lymphedema of the left breast or left upper extremity. She reports she was seen in follow-up by medical oncology and has an appointment with Dr. Leyva, her surgeon, next week. She has a history of a spinal defect and indicates that she will be talking with Dr. Leyva about referral to a neurosurgeon regarding her low back pain at L5-S1. She and her are looking forward to visiting their children and grandchildren in [place] this spring. Current Medications: Allergies: Current Complaints / Review of Systems: . Vital Signs: Performed on 07/27/2023 9:29 AM BMI - 37.861 kg/m2 (high), Height - 62 in, Weight - 207 lbs, Temperature - 97.1 f, Pulse - 70 /min, Respiration - 16 /min, O2 Sat - 98 %, Pain - 0, Fatigue - 2 and BP - 117/ 61 mm(hg)(/low). Physical Exam: General: Alert and oriented x 3. No acute distress. HEENT: Normocephalic, atraumatic. Extraocular Movements Intact: Pupils Equal, Round, Reactive to Light and Accommodation: Sclerae anicteric. Oral cavity is clear without lesions, masses or ulcers. NECK: Supple without supraclavicular or jugular lymphadenopathy. LUNGS: Clear to auscultation bilaterally without rales, rhonchi or wheeze. HEART: Regular rate and rhythm, normal S1 and S2 without murmur, gallop or rub. BREASTS: Skin of the left breast is intact without erythema or desquamation. Surgical incision in the lower outer quadrant of the left breast is well-healed. No lymphedema is noted. MUSCULOSKELETAL: No tenderness or percussion pain over the axial skeleton, scapulae or pelvis. ABDOMEN: Soft, nontender, nondistended without masses or organomegaly. Bowell sounds are present. EXTREMITIES: No peripheral edema is identified. Limited motor and sensory examination are grossly intact and symmetric bilaterally. NEUROLOGIC: Cranial nerves II ???XII are grossly intact. Normal sensation, strength 5/5 in all extremities, normal gait, no ataxia. Performance Status: Lab: None pending. Pathology: Primary, c50.912 - malignant neoplasm of unspecified site of left female breast, Diagnosed 04/12/2023 (active) . Imaging: See HPI Impression: The patient has recovered well from her radiation therapy for treatment of her left breast carcinoma. She has been instructed to continue follow-up with Dr. March and Dr. Leyva and to contact our office if she has questions or concerns regarding her radiation therapy. Additionally she has been advised to continue with routine mammographic surveillance. Signed by: 07/27/2023 9:55:10 AM <<Signature on File>> Time spent with patient: 20 minutes CPT Code: CPT Code:
[2023-07-29 11:19] LABS: Vit D 1,25 (Oh)2, Total 42 pg/mL (18-72); Vit D2 1,25 (Oh)2 <8 pg/mL; Vit D3 1,25 (Oh)2 42 pg/mL
== END 2023-08-03 23:59 | disposition home or self-care (01) ==
PROVIDERS: Internal Medicine Medical Oncology; PCP Family Medicine; Visit Provider Radiology Radiation Oncology
DX: C50.812 Malignant neoplasm of overlapping sites of left female breast
CPT/HCPCS: 36415; 80053; 82306; 82652; 85025; 99024; 99214

== ENCOUNTER 2023-09-11 08:44 | Outpatient (CLI) | payer MEDICARE, SELFPAY ==
--- NOTE | 2023-09-11 08:51 | MR_ITS ---
WS: [id number] MRI LUMBAR SPINE NONCONTRAST TECHNIQUE: Sagittal T1, T2 and STIR imaging. Axial T1 and T2 imaging. CLINICAL INFORMATION: Lumbar radiculopathy COMPARISON: MRI 2020 FINDINGS: Mild lumbar curve. No acute compression. No high-grade central canal stenosis. Disc space heights and vertebral body heights are well preserved. L1-L2: Mild annular bulging. Mild facet arthropathy. Spinal canal and foramen are patent. L2-L3: Mild annular bulging. Mild facet arthropathy. Slight effacement of the ventral thecal sac. Spi nal canal and foramen are patent. L3-L4: Mild annular bulging with slight effacement of the ventral thecal sac. Mild narrowing of the L EFT subarticular recess. Mild facet arthropathy. Mild LEFT greater than RIGHT foraminal narrowing. Sp inal canal is patent. L4-L5: Mild annular bulging with slight effacement of the ventral thecal sac. Small LEFT foraminal pr otrusion with mild LEFT foraminal narrowing. RIGHT foramen is patent. Moderate facet arthropathy. L5-S1: Disc osteophyte complex with endplate ridging. Moderate facet arthropathy. Spinal canal and fo ramen are patent. Visualized pelvic bony structures: Normal. Paravertebral soft tissues: Normal. Hepatomegaly. Incidental Tarlov cyst in the sacrum. IMPRESSION: 1. No significant changes since 05/10/2021. 2. Mild lumbar curve. No acute compression. No high-grade central canal stenosis. 3. Mild annular bulging L4-5 with slight narrowing of the subarticular recess and mild LEFT foramina l narrowing. Moderate facet arthropathy at this level. 4. Moderate facet arthropathy L5-S1. 5. Mild annular bulging L3-4 with slight narrowing of the LEFT subarticular recess and mild LEFT for aminal narrowing.
== END 2023-09-11 08:45 | disposition home or self-care (01) ==
LOC: RAD 08:44
PROVIDERS: PCP Family Medicine; Visit Provider Registered Nurse
DX: M47.816 Spondylosis without myelopathy or radiculopathy, lumbar region (principal); M54.16 Radiculopathy, lumbar region; Z98.890 Other specified postprocedural states; M48.061 Spinal stenosis, lumbar region without neurogenic claudication
CPT/HCPCS: 72148

== ENCOUNTER 2023-10-12 14:14 | Oncology outpatient (recurring) (ONCR) | payer MEDICARE, SELFPAY ==
[2023-10-12 14:40] LABS: Basophils % 0.5 %; Eosinophils # 0.1 10^3/uL (0.0-0.8); Hematocrit 37.7 % (36-47); Lymphocytes # 2.2 10^3/uL (0.8-4.8); Lymphocytes % 37.3 %; Mean Corpuscular HGB Conc 31.6 g/dL (30-55); Mean Corpuscular Hemoglobin 28.2 pg (27-33); Mean Corpuscular Volume 89.3 fl (85-98); Mean Platelet Volume 9.7 fL (7.4-10.4); Monocytes # 0.5 10^3/uL (0.2-0.9); Monocytes % 8.9 %; Neutrophils # 3.09 10^3/uL (1.8-7.7); Nucleated Red Blood Cells % 0 %; Platelet Count 307 10^3/cmm (157-399); Red Blood Count 4.22 10^6/uL (3.85-5.65); Red Cell Distribution Width 14.2 % (12.1-15.1); White Blood Count 5.95 10^3/uL (3.29-11.43)
[2023-10-12 14:50] LABS: Alanine Aminotransferase 12 U/L (0-33); Albumin Level 4.2 g/dL (3.5-5.2); Alkaline Phosphatase 63 U/L (35-105); Anion Gap 18.5 (5-19); Aspartate Amino Transferase 11 U/L (0-32); Blood Urea Nitrogen 20 mg/dL (8-23); Calcium 8.9 mg/dL (8.5-10.5); Carbon Dioxide 23 mmol/L (22-29); Chloride 102 mmol/L (98-107); Globulin 2.4 g/dL (1.3-4.6); Glucose 182 mg/dL (65-115); Osmolality Calculated 295 mOsm/kg (285-295); Potassium 4.5 mmol/L (3.5-5.1); Sodium 139 mmol/L (136-145); Total Bilirubin 0.2 mg/dL (0.15-1.2); Total Protein 6.6 g/dL (6.6-8.7)
== END 2023-11-03 23:59 | disposition home or self-care (01) ==
PROVIDERS: PCP Family Medicine; Visit Provider Nurse Practitioner Family
DX: C50.512 Malignant neoplasm of lower-outer quadrant of left female breast; C77.9 Secondary and unspecified malignant neoplasm of lymph node, unspecified; Z17.0 Estrogen receptor positive status [ER+]; Z79.811 Long term (current) use of aromatase inhibitors; Z15.01 Genetic susceptibility to malignant neoplasm of breast; Z15.09 Genetic susceptibility to other malignant neoplasm; N64.4 Mastodynia; M79.622 Pain in left upper arm
CPT/HCPCS: 36415; 80053; 85025; 99214

== ENCOUNTER → 2023-12-11 09:14 | Outpatient (BNVA) | payer MEDICARE, SELFPAY | PROVIDERS: PCP Family Medicine; Visit Provider Family Medicine | DX: E11.65 Type 2 diabetes mellitus with hyperglycemia (principal) | CPT/HCPCS: 83036; 86431 ==

== ENCOUNTER → 2023-12-13 09:45 | Outpatient (BNVA) | payer MEDICARE, SELFPAY | PROVIDERS: PCP Family Medicine; Visit Provider Nurse Practitioner Family | DX: L82.1 Other seborrheic keratosis (principal); Z85.828 Personal history of other malignant neoplasm of skin; D18.01 Hemangioma of skin and subcutaneous tissue; L98.8 Other specified disorders of the skin and subcutaneous tissue; D48.5 Neoplasm of uncertain behavior of skin; L30.4 Erythema intertrigo | CPT/HCPCS: 11102; 99214 ==

== ENCOUNTER 2023-12-19 17:08 | Emergency (ER) | payer MEDICARE, SELFPAY ==
[2023-12-19 17:37] VITALS: BP 181/70; PULSE 85; TEMP 36.7; O2SAT 93; BMI 38.7
[2023-12-19 17:44] VITALS: BP 181/70; PULSE 89; O2SAT 92
--- NOTE | 2023-12-19 17:47 | ECG_ITS ---
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 Measurements Intervals [place] Rate: 78 P: 69 MO: 161 QRS: 3 QRSD: 86 T: 41 QT: 362 QTc: 413 Interpretive Statements SINUS RHYTHM LOW QRS VOLTAGE IN PRECORDIAL LEADS [QRS DEFLECTION < 1.0 mV IN CHEST LEADS] POSSIBLE ANTERIOR MYOCARDIAL INFARCTION , OF INDETERMINATE AGE [30 ms Q WAVE IN V3/V4, OR R < 0.2 mV IN V4] No previous ECG available for comparison Electronically Signed On 12-19-2023 21:33:26 CDT by Ashvin Langley M.D. [email or web address]
--- NOTE | 2023-12-19 17:47 | XRR_ITS ---
PROCEDURE INFORMATION: Exam: XR Chest Exam date and time: 12/19/2023 6:22 PM Age: 78 years old Clinical indication: Other: Hyperglycemia; Additional info: Weakness TECHNIQUE: Imaging protocol: Radiologic exam of the chest. Views: 1 view. COMPARISON: CR XR chest 2V* [id number] 12/18/2017 3:34 PM FINDINGS: Lungs: The lungs are clear. No pulmonary consolidation. Pleural spaces: No pleural effusion or pneumothorax. Heart/Mediastinum: The cardiomediastinal silhouette is magnified but otherwise within normal limits. Bones/joints: No acute osseous abnormalities are seen. XR/XR chest 1V portable [id number] IMPRESSION: No acute cardiopulmonary disease.
[2023-12-19 17:48] LABS: Glucose Point of Care 279 mg/dL (70-110)
--- NOTE | 2023-12-19 17:51 | ED_ITS ---
HPI - Recheck/Abnormal Lab/Rx 2 General: Chief Complaint: Recheck/Abnormal Lab/Rx Stated Complaint: high blood sugar Time Seen by Provider: 12/19/23 17:32 Source: patient Mode of arrival: ambulatory Limitations: no limitations History of Present Illness: 78-year-old female with history of diabe hilary she states that today her blood sugars been running higher than typical she states earlier today it was in the 400s she did take an extra dose of Lantus it is now 279. She has a history of breast cancer she is currently in remission is starting a new hormone blocking medicine 3 days ago and states she had some generalized weakness and just not feeling real well she has no specific complaints she had some nausea denies any vomiting Review of Systems 2 Const: Reports: fatigue and malaise; Denies: fever(s), chills, body aches or change in appetite Eyes: Denies: blurry vision or eye discomfort ENMT: Denies: throat pain or dental pain Card: Denies: chest pain Resp: Denies: dyspnea GI: Reports: nausea; Denies: abdominal pain, vomiting or diarrhea : Denies: dysuria Musc: Denies: neck pain or back pain Skin/Breast: Denies: rash Neuro: Denies: headache(s) PFSH ED 2 PFSH: Medical History (Updated 12/19/23 @ 19:27 by Adalid Choe MD) Breast abscess BRCA2 gene mutation positive Breast cancer Irritable bowel syndrome with diarrhea Hearing loss, bilateral History of nonmelanoma skin cancer Helicobacter pylori gastritis Lumbar disc disease with radiculopathy Facet arthropathy, lumbar GERD (gastroesophageal reflux disease) Colon polyps Dyslipidemia Type 2 diabetes mellitus Hypertension Surgical History History of cataract extraction with lens replacement 2021 History of tonsillectomy 1960 History of ankle surgery left tarsal tunnel History of carpal tunnel surgery of right wrist 2011 History of arthroscopy of right knee 2000 History of arthroscopy of left knee meniscus, 2013 History of foot surgery left foot neuroma removal History of colonoscopy with polypectomy (05/06/21) 2017 History of esophagogastroduodenoscopy (EGD) (05/06/21) 2018 History of x2 History of back surgery L4-5 Family History Father Diabetes CAD (coronary artery disease), Onset Age: 90 Cancer skin Grandmother CAD (coronary artery disease), Onset Age: 50 [place] Grandfather CAD (coronary artery disease), Onset Age: 50 [place] Stroke Family/Other CAD (coronary artery disease) UNCLE [place] Mother Cancer Denies family history of Clotting disorder Dementia Chronic kidney disease (CKD) Suicide Anesthesia complication Bleeding disorder Lung disease Social History Smoking and tobacco/nicotine status: never used tobacco/nicotine Second hand smoke exposure: No Alcohol intake: current Alcohol intake frequency: holidays/special occasions only Alcohol type: wine Substance/Drug Use: never Lives independently: Yes Household members: spouse and children Marital status: Number of children: 2 Physical Exam 2 Const: COMMON NORMALS: no acute distress, patient oriented x3 and healthy appearing HENMT: COMMON NORMALS: normocephalic and atraumatic HEAD & SCALP: n ormocephalic and atraumatic Eye: COMMON NORMALS: conjunctivae normal CONJUNCTIVA: Yes conjunctivae normal Neck/C-Spine: COMMON NORMALS: full ROM and supple Chest: COMMONS NORMALS: normal inspection of the chest Resp: COMMON NORMALS: normal respiratory effort, No retractions, No use of accessory muscles and clear to auscultation bilaterally AUSCULTATION: clear to auscultation bilaterally Cardio: COMMON NORMALS: regular rate, regular rhythm and No murmurs present (Cardio) RATE: regular rate RHYTHM: regular rhythm Extremity: COMMON NORMALS: normal to inspection and full ROM Neuro: COMMON NORMALS: patient oriented x3, moves all extremities and no focal motor deficits Psych: COMMON NORMALS: mental status grossly normal, Normal thought process present and cooperative THOUGHT PROCESS: Normal thought process present Skin: COMMON NORMALS: no rashes or lesions noted and no wounds GENERAL SKIN EXAM: no rashes or lesions noted Course 2 Vital Signs: Vital signs: Vital Signs Temperature 98.1 F 12/19/23 17:37 Pulse Rate 89 12/19/23 17:44 Blood Pressure 181/70 12/19/23 17:44 Pulse Oximetry 92 12/19/23 17:44 Oxygen Delivery Me thod Room Air 12/19/23 17:44 MDM - Recheck/Abnormal Lab/Rx Medical Decision Making Patient presents with hyperglycemia blood sugar here is improved blood works normal no signs of infection she does feel improved she has an appoint with her PCP on follow-up as scheduled return if worsening she understands agrees to plan Medical Records I reviewed the patient's medical records. Lab Data I reviewed the patient's lab results. 12/19/23 17:41 12/19/23 17:41 Radiology Impressions Chest X-Ray 12/19/23 17:47 IMPRESSION: No acute cardiopulmonary disease. Laboratory Results WBC 5.69 10^3/uL (3.29-11.43) 12/19/23 17:41 RBC 4.28 10^6/uL (3.85-5.65) 12/19/23 17:41 Hgb 12.10 g/dL (11.27-16.99) 12/19/23 17:41 Hct 38.0 % (36-47) 12/19/23 17:41 MCV 88.8 fl (85-98) 12/19/23 17:41 MCH 28.3 pg (27-33) 12/19/23 17:41 MCHC 31.8 g/dL (30-55) 12/19/23 17:41 RDW 13.8 % (12.1-15.1) 12/19/23 17:41 Plt Count 290 10^3/cmm (157-399) 12/19/23 17:41 MPV 9.9 fL (7.4-10.4) 12/19/23 17:41 Neut % (Auto) 43.7 % 12/19/23 17:41 Lymph % (Auto) 45.7 % 12/19/23 17:41 [place] % (Auto) 8.3 % 12/19/23 17:41 Eos % (Auto) 1.4 % 12/19/23 17:41 Baso % (Auto) 0.5 % 12/19/23 17:41 Neut # (Auto) 2.49 10^3/uL (1.8-7.7) 12/19/23 17:41 Lymph # (Auto) 2.6 10^3/uL (0.8-4.8) 12/19/23 17:41 [place] # (Auto) 0.5 10^3/uL (0.2-0.9) 12/19/23 17:41 Eos # (Auto) 0.1 10^3/uL (0.0-0.8) 12/19/23 17:41 Baso # (Auto) 0.0 10^3/uL (0.0-0.1) 12/19/23 17:41 Nucleated RBC % (auto) 0 % 12/19/23 17:41 Nucleated RBCs # 0.0 /100WBC 12/19/23 17:41 Sodium 134 mmol/L (136-145) L 12/19/23 17:41 Potassium 4.3 mmol/L (3.5-5.1) 12/19/23 17:41 Chloride 98 mmol/L (98-107) 12/19/23 17:41 Carbon Dioxide 23 mmol/L (22-29) 12/19/23 17:41 Anion Gap 17.3 (5-19) 12/19/23 17:41 BUN 16 mg/dL (8-23) 12/19/23 17:41 Creatinine 0.7 mg/dL (0.5-0.9) 12/19/23 17:41 GFR Calculation Not Reportable 12/19/23 17:41 Glucose 281 mg/dL (65-115) H 12/19/23 17:41 POC Glucose 234 mg/dL (70-110) H 12/19/23 19:14 Calculated Osmolality 289 mOsm/kg (285-295) 12/19/23 17:41 Calcium 9.0 mg/dL (8.5-10.5) 12/19/23 17:41 Total Bilirubin 0.2 mg/dL (0.15-1.2) 12/19/23 17:41 AST 9 U/L (0-32) 12/19/23 17:41 ALT 15 U/L (0-33) 12/19/23 17:41 Alkaline Phosphatase 71 U/L (35-105) 12/19/23 17:41 Total Protein 6.7 g/dL (6.6-8.7) 12/19/23 17:41 Albumin 4.5 g/dL (3.5-5.2) 12/19/23 17:41 Globulin 2.2 g/dL (1.3-4.6) 12/19/23 17:41 All radiology interpretation(s) finalized by discharge EKG Data EKG 1: I personally reviewed and interpreted this EKG as follows: EKG interpretation date: 12/19/23 EKG interpretation time: 17:58 Interpretation: nsr hr [address] elevation qrs 86 qtc 395 Discharge Plan Discharge Patient Disposition: Home Clinical Impression: Hyperglycemia Condition: Stable Prescriptions: No Action bupivacaine (PF) 0.25 % (2.5 mg/mL) solution 1 ml intra-articular ONCE Qty: 1 0RF nitroglycerin 0.4 mg tablet, sublingual 0.4 mg sublingual Q5M PRN (Reason: chest pain) Rx Instructions: do not exceed 3 doses per episode coenzyme Q10 100 mg capsule 100 mg PO DAILY true nature probiotic 12 strain PO Young living essentail oils Calcium Mag Zinc Pottassuim PO sulfurzyme PO BID vitamin E (dl, acetate) 45 mg (100 unit) capsule 45 mg PO DAILY Viatamin D3 PO 1XD ascorbic acid (vitamin C) 1,000 mg tablet 500 mg PO DAILY B complex PO DAILY (DME) pen needle, diabetic [Comfort EZ Pen [place]] 31 gauge x 5/16 needle See Rx Instructions .Route Qty: 100 0RF Rx Instructions: inject insulin, daily. anastrozole 1 mg tablet 1 mg PO DAILY diphenoxylate-atropine 2.5-0.025 mg tablet 2.5 tab PO QID PRN (Reason: IBS) Qty: 90 0RF diltiazem HCl 180 mg capsule,extended release 24hr See Rx Instructions .ROUTE .COMPLEX Qty: 90 3RF Dose Instruction: TAKE 1 CAPSULE BY MOUTH DAILY Rx Instructions: TAKE 1 CAPSULE BY MOUTH DAILY enalapril maleate 20 mg tablet See Rx Instructions .ROUTE .COMPLEX Qty: 180 3RF Dose Instruction: TAKE 1 TABLET BY MOUTH TWICE DAILY Rx Instructions: TAKE 1 TABLET BY MOUTH TWICE DAILY omeprazole 20 mg capsule,delayed release(DR/EC) See Rx Instructions .ROUTE .COMPLEX Qty: 180 3RF Dose Instruction: TAKE 1 CAPSULE BY MOUTH TWICE DAILY Rx Instructions: TAKE 1 CAPSULE BY MOUTH TWICE DAILY donepezil 10 mg tablet See Rx Instructions .ROUTE .COMPLEX Qty: 90 3RF Dose Instruction: TAKE 1 TABLET BY MOUTH DAILY Rx Instructions: TAKE 1 TABLET BY MOUTH DAILY atorvastatin 20 mg tablet See Rx Instructions .ROUTE .COMPLEX Qty: 90 3RF Dose Instruction: TAKE 1 TABLET BY MOUTH DAILY Rx Instructions: TAKE 1 TABLET BY MOUTH DAILY pioglitazone 30 mg tablet See Rx Instructions .ROUTE .COMPLEX Qty: 90 3RF Dose Instruction: TAKE 1 TABLET BY MOUTH DAILY Rx Instructions: TAKE 1 TABLET BY MOUTH DAILY (DME) OneTouch Ultra Test Strip See Rx Instructions .ROUTE .COMPLEX Qty: 100 0RF Dose Instruction: USE DIRECTED Rx Instructions: USE DIRECTED insulin glargine [Lantus Solostar U-100 Insulin] 100 unit/mL (3 mL) insulin pen See Rx Instructions .ROUTE .COMPLEX Qty: 75 3RF Dose Instruction: INJECT SUBCUTANEOUSLY 10 UNITS EVERY MORNING AND 74 UNITS EVERY NIGHT AT BEDTIME Rx Instructions: INJECT SUBCUTANEOUSLY 10 UNITS EVERY MORNING AND 74 UNITS EVERY NIGHT AT BEDTIME Discharge Orders: Discharge ED (Routine); Ordered 12/19/23 Ordered By: Adalid Choe Referrals: Casie Parrish MD [Primary Care Provider] - 4-7 days Discharge Diet: Advance as tolerated Discharge Activity: Resume usual activity Patient Instructions: Diabetic Hyperglycemia (ED) Coding Level of Care Code 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
[2023-12-19 18:02] LABS: Basophils % 0.5 %; Eosinophils # 0.1 10^3/uL (0.0-0.8); Eosinophils % 1.4 %; Lymphocytes # 2.6 10^3/uL (0.8-4.8); Lymphocytes % 45.7 %; Mean Corpuscular HGB Conc 31.8 g/dL (30-55); Mean Corpuscular Hemoglobin 28.3 pg (27-33); Mean Corpuscular Volume 88.8 fl (85-98); Mean Platelet Volume 9.9 fL (7.4-10.4); Monocytes # 0.5 10^3/uL (0.2-0.9); Monocytes % 8.3 %; Neutrophils # 2.49 10^3/uL (1.8-7.7); Neutrophils % 43.7 %; Nucleated Red Blood Cells % 0 %; Platelet Count 290 10^3/cmm (157-399); Red Blood Count 4.28 10^6/uL (3.85-5.65); Red Cell Distribution Width 13.8 % (12.1-15.1); White Blood Count 5.69 10^3/uL (3.29-11.43)
[2023-12-19] MEDS: sodium chloride 0.9% 1,000 ML 999 ML IV (18:11)
[2023-12-19 18:13] LABS: Alanine Aminotransferase 15 U/L (0-33); Albumin Level 4.5 g/dL (3.5-5.2); Alkaline Phosphatase 71 U/L (35-105); Anion Gap 17.3 (5-19); Aspartate Amino Transferase 9 U/L (0-32); Blood Urea Nitrogen 16 mg/dL (8-23); Carbon Dioxide 23 mmol/L (22-29); Chloride 98 mmol/L (98-107); Creatinine Clr Calc Pharmacy 64.7179; Globulin 2.2 g/dL (1.3-4.6); Glucose 281 mg/dL (65-115); Osmolality Calculated 289 mOsm/kg (285-295); Potassium 4.3 mmol/L (3.5-5.1); Sodium 134 mmol/L (136-145); Total Bilirubin 0.2 mg/dL (0.15-1.2); Total Protein 6.7 g/dL (6.6-8.7)
--- NOTE | 2023-12-19 19:00 | PC.NURSE ---
PT REFUSING TO LEAVE VS EQUIPMENT ON
[2023-12-19 19:19] LABS: Glucose Point of Care 234 mg/dL (70-110)
[2023-12-19 19:30] LABS: Add Urine Microscopic? NO; Charge for UA Resulting for Rev
[2023-12-19 19:34] LABS: Bilirubin Urine Neg (Negative); Blood Urine Neg (Negative); Glucose Urine UA 4+ (Normal); Ketones Urine Negative (Negative); Leukocyte Esterase Urine Negative (Negative); Nitrate Urine Negative (Negative); Protein Urine Neg (Negative); Urine Appearance Clear (CLEAR); Urine Color Yellow (Yellow); Urobilinogen Urine Norm (Negative); pH Urine 5 (5-7)
== END 2023-12-19 20:22 | disposition home or self-care (01) ==
PROVIDERS: Emergency Provider Emergency Medicine; PCP Family Medicine
DX: E11.65 Type 2 diabetes mellitus with hyperglycemia (principal); I10 Essential (primary) hypertension; E78.5 Hyperlipidemia, unspecified; Z79.4 Long term (current) use of insulin; Z79.899 Other long term (current) drug therapy
CPT/HCPCS: 36415; 36416; 71045; 80053; 81003; 82962; 85025; 93005; 99285; J7030

== ENCOUNTER 2024-01-16 14:06 | Oncology outpatient (recurring) (ONCR) | payer MEDICARE, SELFPAY ==
--- OUTSIDE RECORDS SUMMARY | 2024-01-16 14:09 | XMS_ITS | Patient Health Record ---
Author Name Unknown Organization [facility] Address [address] [place] [address] Care Team Providers Care Buffet Manager Name Role Phone Veronica Bhakta Primary Care Provider [phone] Alexandrea Schuler Unavailable [phone] RANDI Mohan MD, TANNA Unavailable Unavailabl e Allergies Allergen (clinical drug ingredient) Drug/Non Drug Allergy [...] (FN) NSAIDs stomach upset Drug Allergy Active Reason For Referral No Information Medications Medication SIG (Take, Route, Frequency, Duration) Notes Start Date End Date Status Nitrostat 0.4 MG as directed Sublingual Active CoQ-10 100 MG 1 capsule with a meal Orally Once a day for 30 day(s) 07/14/2020 Active Omeprazole 20 MG 1 tablet 30 minutes before meals Orally twice daily for 90 days Active Probiotic - as directed Orally [place] Extra Strength Active OneTouch Ultra Test - [...] a day for 90 days Active Pen [place] 31G X 6 MM Use to inject [...] Active Pantothenic Acid B-5 Complex A ctive [place] 3 1200 MG 1 capsule Orally twice [...] 1 tablet Orally Once a day Active Immunizations Vaccine Route Administration Date Status Comme nts COVID-19 Vaccine ([place]) Dose #1 Unknown 07/03/2020 Administered COVID-19 Vaccine ([place]) Dose #2 IM Intramuscular 07/31/2020 Administered Social History Tobacco Use: Social History Observation Description Date Details (start date - stop date) Never Smoker NA - NA xTobacco Use/Smoking Question Answer Notes Are you a nonsmoker Problems Problem Type SNOMED Code ICD Code Onset Dates Problem Status W/U Status Risk Notes Problem Gastro-esophageal reflux disease without esophagitis (028679003) Gastro-esophageal reflux disease without esophagitis (K21.9) Active confirmed Problem 41802233 Age-related osteoporosis without current pathological fracture (M81.0) Active confirmed Problem 10673218 Essential hypertension (I10) Active confirmed Problem 63655566 Memory loss (R41.3) Active confirmed Problem 13844748 Pulmonary hypertension (I27.20) Active confirmed Problem 77407998 Hypercholesterol emia (E78.00) Active confirmed Problem Irritable bowel syndrome (38116277) IBS (irritable bowel syndrome) (K58.9) Active confirmed Problem 292027556 Seasonal allergi es (J30.2) Active confirmed Problem Diabetes mellitus type 2 (75134923) Diabetes mellitus type 2, uncontrolled (E11.65) Active confirmed Problem Memory loss (41362546) Memory loss (780.93) 2018 Active confirmed [id number]- Problem Hypercholesterolemia (18164149) Hypercholesterolemia (272.0) 2015 Active confirmed [id number]- Problem Gastroesophageal reflux disease (517660225) Gastroesophageal reflux disease (530.81) 2017 Active confirmed [id number]- Problem Irritable bowel syndrome (15172770) IBS, diarrhea prominent type (564.1) 2018 Active confirmed [id number]- Problem Mitral valve regurgitation (73217105) Mitral valve regurgitation (424.0) 2015 Active confirmed [id number]- Problem Obstructive sleep apnea (94273051) Obstructive sleep apnea (780.57) 2016 Active confirmed [id number]- Problem Essential hypertension (79862327) Essential hypertension (401.1) 2018 Active confirmed [id number]- Problem Gastroesophageal reflux disease (397506713) GERD (530.81) 2017 Active confirmed [id number]- Problem Type II diabetes mellitus without complication (090122275) Type 2 diabetes (250.00) 2018 Active confirmed [id number]- Problem Cough (72698976) Cough (786.2) 2018 Problem resolved confirmed [id number]- Problem Diarrhea (31759264) Diarrhea (787.91) 2018 Problem resolved confirmed [id number]- Problem Dysuria (22860436) Dysuria (788.1) 2016 Problem resolved confirmed [id number]- Problem Urinary frequency (322682786) Urinary frequency (788.41) 2016 Problem resolved confirmed [id number]- Problem Sleep apnea (62815892) Sleep apnea (780.57) 2016 Problem resolved confirmed [id number]- Problem Anemia (208430405) Anemia, unspe cified (285.9) 2018 Problem resolved confirmed [id number]- Problem Hyperlipidemia (85078334) Hyperlipidemia (272.4) 2017 Problem resolved confirmed [id number]- Problem Low back pain (583184453) Low back pain (724.2) 2015 Problem resolved confirmed [id number]- Problem Iron deficiency anemia (15270381) Iron deficiency anemia, unspecified (280.9) 2016 Problem resolved confirmed [id number]- Problem Hypotension (71946530) Hypotension, other (458.8) 2017 Problem resolved confirmed [id number]- Problem Shortness of breath (421427721) Shortness of breath (786.09) 2016 Problem resolved confirmed [id number]- Problem Disorder of hematopoietic system (70551075) Other abnormal findings on blood examination (790.99) 2015 Problem resolved confirmed [id number]- Problem Chest pain (45259227) Chest pain (786.51) 2015 Problem resolved confirmed [id number]- Problem Elevated levels of transaminase & lactic acid dehydrogenase (306835553) Elevated SGOT (AST) (790.4) 2015 Problem resolved confirmed [id number]- Problem Rib pain (928135955) Rib pain (786.50) 2017 Problem resolved confirmed [id number]- Problem Iron deficiency anemia (09479452) Other specified iron deficiency anemia (280.8) 2017 Problem resolved confirmed [id number]- Problem Anxiety state (130895494) Situational stress with anxiety (300.09) 2015 Problem resolved confirmed [id number]- Problem Allergic rhinitis (29813300) Allergic rhinitis, unspecified cause (477.9) 2015 Problem resolved confirmed [id number]- Problem Foot swelling (873149787) Foot swelling (729.81) 2018 Problem resolved confirmed [id number]- Problem Urinary tract infection (14654633) Urinary tract infection (595.0) 2015 Problem resolved confirmed [id number]- Problem Type II diabetes mellitus without complication (290272002) Type II diabetes (250.00) 2015 Problem resolved confirmed [id number]- Problem Insect bite (512126243) Insect bite (919.4) 2018 Problem resolved confirmed José [id number]- Problem Non-alcoholic fatty liver (402583112) Nonalcoholic fatty liver (571.8) 2016 Problem resolved confirmed [id number]- Problem Osteomalacia (2793582) Osteomalacia (268.2) 2018 Problem resolved confirmed [id number]- Problem Impacted cerumen (45786160) External cerumen impaction (380.4) 2018 Problem resolved confirmed José [id number]- Problem Chronic nonalcoholic liver disease (41146084) Liver steatosis (571.8) 2017 Problem resolved confirmed [id number]- Problem 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 Problem resolved confirmed José [id number]- Problem Screening for malignant neoplasm of breast (558558679) Screening for breast cancer, unspecified (V76.10) 2015 Problem resolved confirmed José [id number]- Plan Of Treatment No Information Insurance Providers Payer Name Payer Address Payer Phone Subscriber Number Group Number Insured Name Patient Relationship to Insured Coverage Start Date Coverage End Date [facility] [address] [address] [place] [phone] [id number] Jaki Hummel Self - patient is the insured Medications Administered Medication Instructions Date of Administration Dosage Notes dexAMETHasone 11/18/2021 30 mg Medical (General) History Medical History History ICD Code Hypertension Hypercholesterolemia Mitral valve regurgitation GERD IBS Sleep apnea Type 2 diabetes Osteomalacia Chronic back pain Allergies; seasonal Skin cancer; squamous cell Depression H. Pylori, 06/2021 Surgical History Surgery Date(Month/Year) Squamous cell removed; right frontal are a 08/04/2015 Tarsal tunnel; left foot 07/1990 Carpal tunnel; right 09/2011 Bone structure repair; 2nd toe bilateral 02/1986 Meniscus repair; left 10/2012 Laminectomy; lumbar region 05/2015 x 2 09/1974, 09/1977 Tonsillectomy 1960 Hospitalization History Reason Date(Month/Year) Childbirth; C-sections x 2
[2024-01-16 14:35] LABS: Basophils % 0.6 %; Eosinophils # 0.1 10^3/uL (0.0-0.8); Eosinophils % 1.1 %; Lymphocytes # 2.1 10^3/uL (0.8-4.8); Lymphocytes % 39.1 %; Mean Corpuscular HGB Conc 32.4 g/dL (30-55); Mean Corpuscular Hemoglobin 28.8 pg (27-33); Mean Corpuscular Volume 88.7 fl (85-98); Mean Platelet Volume 9.2 fL (7.4-10.4); Monocytes # 0.5 10^3/uL (0.2-0.9); Monocytes % 8.8 %; Neutrophils # 2.73 10^3/uL (1.8-7.7); Nucleated Red Blood Cells % 0 %; Platelet Count 283 10^3/cmm (157-399); Red Blood Count 4.17 10^6/uL (3.85-5.65); Red Cell Distribution Width 14.6 % (12.1-15.1); White Blood Count 5.45 10^3/uL (3.29-11.43)
[2024-01-16 14:52] LABS: Alanine Aminotransferase 14 U/L (0-33); Albumin Level 4.3 g/dL (3.5-5.2); Alkaline Phosphatase 65 U/L (35-105); Anion Gap 17.3 (5-19); Aspartate Amino Transferase 11 U/L (0-32); Blood Urea Nitrogen 18 mg/dL (8-23); Calcium 8.8 mg/dL (8.5-10.5); Carbon Dioxide 21 mmol/L (22-29); Chloride 101 mmol/L (98-107); Globulin 2.3 g/dL (1.3-4.6); Glucose 147 mg/dL (65-115); Osmolality Calculated 285 mOsm/kg (285-295); Potassium 4.3 mmol/L (3.5-5.1); Sodium 135 mmol/L (136-145); Total Bilirubin 0.2 mg/dL (0.15-1.2); Total Protein 6.6 g/dL (6.6-8.7)
== END 2024-02-03 23:59 | disposition home or self-care (01) ==
PROVIDERS: Internal Medicine Medical Oncology; PCP Family Medicine; Visit Provider Nurse Practitioner Family
DX: C50.512 Malignant neoplasm of lower-outer quadrant of left female breast (principal); C77.3 Secondary and unspecified malignant neoplasm of axilla and upper limb lymph nodes; Z17.0 Estrogen receptor positive status [ER+]; Z15.01 Genetic susceptibility to malignant neoplasm of breast; Z15.09 Genetic susceptibility to other malignant neoplasm; Z92.3 Personal history of irradiation; Z79.810 Long term (current) use of selective estrogen receptor modulators (SERMs)
CPT/HCPCS: 36415; 80053; 85025; 99214

== ENCOUNTER 2024-01-23 14:18 | Outpatient (RCR) | payer MEDICARE, SELFPAY | END 2024-02-03 23:59 | disposition home or self-care (01) | LOC: SPT 14:18 | PROVIDERS: PCP Family Medicine; Visit Provider Surgery | DX: R29.898 Other symptoms and signs involving the musculoskeletal system (principal) | CPT/HCPCS: 97110; 97161; 97530 ==

== ENCOUNTER 2024-02-06 16:17 | Outpatient (RCR) | payer MEDICARE, SELFPAY | END 2024-03-04 23:59 | disposition home or self-care (01) | LOC: SPT 16:17 | PROVIDERS: PCP Family Medicine; Visit Provider Surgery | DX: R29.898 Other symptoms and signs involving the musculoskeletal system (principal) | CPT/HCPCS: 97110; 97530 ==

== ENCOUNTER 2024-02-09 09:23 | Outpatient (CLI) | payer MEDICARE, SELFPAY ==
--- NOTE | 2024-02-09 09:34 | XR_ITS ---
WS: [id number] Examination: XR wrist LT min 3V* [id number] Reason for Exam: left wrist pain Date: 02/09/2024 Comparison: None. Findings: There is soft tissue swelling. The bone density is mildly diminished. There is no fracture. There is no dislocation. Mild osteoarthritic changes are identified particularly laterally in the wrist. XR/XR wrist LT min 3V* 52733 Impression: There is no acute bony abnormality There is mild soft tissue swelling with lateral arthritic changes.
== END 2024-02-09 09:24 | disposition home or self-care (01) ==
LOC: RAD 09:24
PROVIDERS: PCP Family Medicine; Visit Provider Family Medicine
DX: M19.032 Primary osteoarthritis, left wrist (principal); M25.532 Pain in left wrist
CPT/HCPCS: 73110

== ENCOUNTER → 2024-02-13 09:11 | Outpatient (BNVA) | payer MEDICARE, SELFPAY | PROVIDERS: PCP Family Medicine; Visit Provider Student in an Organized Health Care Education/Training Program | DX: M65.4 Radial styloid tenosynovitis [de Quervain] (principal); M65.341 Trigger finger, right ring finger | CPT/HCPCS: 20550; 20600; 99204; J3301; J3490 ==

== ENCOUNTER → 2024-03-26 09:02 | Outpatient (BNVA) | payer MEDICARE, SELFPAY | PROVIDERS: PCP Family Medicine; Visit Provider Nurse Practitioner Family | DX: D04.4 Carcinoma in situ of skin of scalp and neck (principal); L82.1 Other seborrheic keratosis; L57.0 Actinic keratosis; L82.0 Inflamed seborrheic keratosis; L57.8 Other skin changes due to chronic exposure to nonionizing radiation; Z85.828 Personal history of other malignant neoplasm of skin | CPT/HCPCS: 17000; 17110; 99214 ==

== ENCOUNTER → 2024-04-10 09:00 | Outpatient (BNVA) | payer MEDICARE, SELFPAY | PROVIDERS: PCP Family Medicine; Visit Provider Dermatology | DX: D04.4 Carcinoma in situ of skin of scalp and neck (principal); L57.0 Actinic keratosis; L82.1 Other seborrheic keratosis; L98.8 Other specified disorders of the skin and subcutaneous tissue | CPT/HCPCS: 17000; 17271; 99213 ==

== ENCOUNTER → 2024-04-17 08:38 | Outpatient (BNVA) | payer MEDICARE, SELFPAY | PROVIDERS: PCP Family Medicine; Visit Provider Family Medicine | DX: E11.9 Type 2 diabetes mellitus without complications (principal) | CPT/HCPCS: 80053; 80061; 83036 ==

== ENCOUNTER → 2024-05-14 10:15 | Outpatient (BNVA) | payer MEDICARE, SELFPAY | PROVIDERS: PCP Family Medicine; Visit Provider Student in an Organized Health Care Education/Training Program | DX: M65.4 Radial styloid tenosynovitis [de Quervain] (principal); M65.332 Trigger finger, left middle finger | CPT/HCPCS: 99214 ==

== ENCOUNTER → 2024-06-03 10:19 | Outpatient (BNVA) | payer MEDICARE, SELFPAY | PROVIDERS: PCP Family Medicine; Visit Provider Nurse Practitioner Family | DX: S00.01XA Abrasion of scalp, initial encounter (principal); X58.XXXA Exposure to other specified factors, initial encounter; L82.1 Other seborrheic keratosis; L98.8 Other specified disorders of the skin and subcutaneous tissue; Z08 Encounter for follow-up examination after completed treatment for malignant neoplasm; Z85.828 Personal history of other malignant neoplasm of skin; L82.0 Inflamed seborrheic keratosis; R20.8 Other disturbances of skin sensation | CPT/HCPCS: 17110; 99213 ==

== ENCOUNTER → 2024-07-16 13:44 | Outpatient (BNVA) | payer MEDICARE, SELFPAY | PROVIDERS: PCP Family Medicine; Visit Provider Nurse Practitioner Family | DX: L82.1 Other seborrheic keratosis (principal); L98.8 Other specified disorders of the skin and subcutaneous tissue; Z08 Encounter for follow-up examination after completed treatment for malignant neoplasm; Z85.828 Personal history of other malignant neoplasm of skin | CPT/HCPCS: 99213 ==

== ENCOUNTER 2024-07-22 13:28 | Oncology outpatient (recurring) (ONCR) | payer MEDICARE, SELFPAY ==
[2024-07-22 14:28] LABS: Basophils # 0.1 10^3/uL (0.0-0.1); Basophils % 0.9 %; Eosinophils # 0.1 10^3/uL (0.0-0.8); Eosinophils % 1.7 %; Hematocrit 37.2 % (36-47); Lymphocytes # 2.3 10^3/uL (0.8-4.8); Mean Corpuscular HGB Conc 30.6 g/dL (30-55); Mean Corpuscular Hemoglobin 28.1 pg (27-33); Mean Corpuscular Volume 91.6 fl (85-98); Mean Platelet Volume 8.9 fL (7.4-10.4); Monocytes # 0.4 10^3/uL (0.2-0.9); Monocytes % 6.3 %; Neutrophils # 4.06 10^3/uL (1.8-7.7); Neutrophils % 57.8 %; Nucleated Red Blood Cells % 0 %; Platelet Count 346 10^3/cmm (157-399); Red Blood Count 4.06 10^6/uL (3.85-5.65); Red Cell Distribution Width 14.4 % (12.1-15.1); White Blood Count 7.01 10^3/uL (3.29-11.43)
[2024-07-22 14:43] LABS: Alanine Aminotransferase 13 U/L (0-33); Albumin Level 3.8 g/dL (3.5-5.2); Alkaline Phosphatase 78 U/L (35-105); Anion Gap 15.2 (5-19); Aspartate Amino Transferase 9 U/L (0-32); Blood Urea Nitrogen 16 mg/dL (8-23); Calcium 8.5 mg/dL (8.5-10.5); Carbon Dioxide 26 mmol/L (22-29); Chloride 102 mmol/L (98-107); Creatinine Clr Calc Pharmacy 63.8611; Globulin 2.4 g/dL (1.3-4.6); Glucose 198 mg/dL (65-115); Osmolality Calculated 295 mOsm/kg (285-295); Potassium 4.2 mmol/L (3.5-5.1); Sodium 139 mmol/L (136-145); Total Bilirubin 0.2 mg/dL (0.15-1.2); Total Protein 6.2 g/dL (6.6-8.7)
== END 2024-08-02 23:59 | disposition home or self-care (01) ==
PROVIDERS: PCP Family Medicine; Visit Provider Nurse Practitioner Family
DX: Z08 Encounter for follow-up examination after completed treatment for malignant neoplasm (principal); Z85.3 Personal history of malignant neoplasm of breast; Z92.3 Personal history of irradiation; Z92.23 Personal history of estrogen therapy; Z90.710 Acquired absence of both cervix and uterus
CPT/HCPCS: 36415; 80053; 83036; 85025; 99214

== ENCOUNTER → 2024-08-06 13:50 | Outpatient (BNVA) | payer MEDICARE, SELFPAY | PROVIDERS: PCP Family Medicine; Visit Provider Student in an Organized Health Care Education/Training Program | DX: M65.332 Trigger finger, left middle finger (principal); M65.4 Radial styloid tenosynovitis [de Quervain]; M65.341 Trigger finger, right ring finger | CPT/HCPCS: 20600; 99214; J3301; J3490 ==

== ENCOUNTER → 2024-11-14 09:37 | Outpatient (BNVA) | payer MEDICARE, SELFPAY | PROVIDERS: PCP Family Medicine; Visit Provider Nurse Practitioner Family | DX: D17.21 Benign lipomatous neoplasm of skin and subcutaneous tissue of right arm (principal); L98.8 Other specified disorders of the skin and subcutaneous tissue; L82.1 Other seborrheic keratosis; L57.8 Other skin changes due to chronic exposure to nonionizing radiation; L57.0 Actinic keratosis; Z08 Encounter for follow-up examination after completed treatment for malignant neoplasm; Z85.828 Personal history of other malignant neoplasm of skin | CPT/HCPCS: 99213 ==

== ENCOUNTER → 2024-11-21 09:07 | Outpatient (BNVA) | payer MEDICARE, SELFPAY | PROVIDERS: PCP Family Medicine; Visit Provider Family Medicine | DX: I10 Essential (primary) hypertension (principal); E78.5 Hyperlipidemia, unspecified; E11.65 Type 2 diabetes mellitus with hyperglycemia | CPT/HCPCS: 80053; 80061; 83036; 84443 ==

== ENCOUNTER 2025-01-21 10:47 | Oncology outpatient (recurring) (ONCR) | payer MEDICARE, SELFPAY ==
[2025-01-21 11:16] LABS: Hematocrit 37.8 % (36-47); Hemoglobin 11.90 g/dL (11.27-16.99); Mean Corpuscular HGB Conc 31.5 g/dL (30-55); Mean Corpuscular Hemoglobin 28.5 pg (27-33); Mean Corpuscular Volume 90.6 fl (85-98); Nucleated Red Blood Cells % 0 %; Platelet Count 302 10^3/cmm (157-399); Red Blood Count 4.17 10^6/uL (3.85-5.65); White Blood Count 6.06 10^3/uL (3.29-11.43)
[2025-01-21 11:36] LABS: Alanine Aminotransferase 17 U/L (0-33); Albumin Level 4.4 g/dL (3.5-5.2); Alkaline Phosphatase 57 U/L (35-105); Anion Gap 16.4 (5-19); Aspartate Amino Transferase 12 U/L (0-32); Blood Urea Nitrogen 16 mg/dL (8-23); Calcium 8.8 mg/dL (8.5-10.5); Carbon Dioxide 22 mmol/L (22-29); Chloride 100 mmol/L (98-107); Creatinine Clr Calc Pharmacy 63.0845; Globulin 2.1 g/dL (1.3-4.6); Glucose 213 mg/dL (65-115); Osmolality Calculated 286 mOsm/kg (285-295); Potassium 4.4 mmol/L (3.5-5.1); Sodium 134 mmol/L (136-145); Total Protein 6.5 g/dL (6.6-8.7)
== END 2025-02-02 23:59 | disposition home or self-care (01) ==
PROVIDERS: PCP Family Medicine; Visit Provider Nurse Practitioner Family
DX: C50.512 Malignant neoplasm of lower-outer quadrant of left female breast (principal); Z17.0 Estrogen receptor positive status [ER+]; R03.0 Elevated blood-pressure reading, without diagnosis of hypertension; Z92.3 Personal history of irradiation; Z92.23 Personal history of estrogen therapy; Z90.710 Acquired absence of both cervix and uterus; Z79.899 Other long term (current) drug therapy
CPT/HCPCS: 36415; 80053; 85025; 99213

== ENCOUNTER → 2025-03-19 08:50 | Outpatient (BNVA) | payer MEDICARE, SELFPAY | PROVIDERS: PCP Family Medicine; Visit Provider Student in an Organized Health Care Education/Training Program | DX: M79.641 Pain in right hand (principal); M65.4 Radial styloid tenosynovitis [de Quervain] | CPT/HCPCS: 73130; 99214 ==

== ENCOUNTER → 2025-03-25 07:51 | Outpatient (BNVA) | payer MEDICARE, SELFPAY | PROVIDERS: PCP Family Medicine; Visit Provider Family Medicine | DX: R39.9 Unspecified symptoms and signs involving the genitourinary system (principal); I10 Essential (primary) hypertension; E11.65 Type 2 diabetes mellitus with hyperglycemia | CPT/HCPCS: 80048; 80061; 81003; 83036 ==

== ENCOUNTER → 2025-03-27 10:59 | Outpatient (BNVA) | payer MEDICARE, SELFPAY | PROVIDERS: PCP Family Medicine; Visit Provider Podiatrist Foot & Ankle Surgery | DX: M79.671 Pain in right foot (principal); M79.672 Pain in left foot; R60.9 Edema, unspecified; E11.65 Type 2 diabetes mellitus with hyperglycemia; M76.822 Posterior tibial tendinitis, left leg; M54.16 Radiculopathy, lumbar region; Z79.4 Long term (current) use of insulin | CPT/HCPCS: 73630; 99214 ==

== ENCOUNTER 2025-04-16 09:18 | Oncology outpatient (recurring) (ONCR) | payer MEDICARE, SELFPAY ==
--- NOTE | 2025-04-16 09:30 | USR_ITS ---
PROCEDURE INFORMATION: Exam: US Duplex Lower Extremity Veins, Bilateral Exam date and time: 04/16/2025 9:37 AM Age: 79 years old Clinical indication: Screening exam; Eval for venous insufficiency TECHNIQUE: Imaging protocol: Real-time duplex ultrasound of the bilateral extremities with 2-D powell scale, color Doppler flow and spectral waveform analysis including responses to compression and other maneuvers (when performed) with image documentation. Complete exam focused on the lower extremity veins. COMPARISON: US pelv w/transvag [id number] 05/09/2023 8:49 AM FINDINGS: Right deep veins: Unremarkable. The common femoral, femoral, proximal profunda femoral and popliteal veins are patent without thrombus. Normal Doppler waveforms. Normal compressibility and/or augmentation response. Left deep veins: Unremarkable. The common femoral, femoral, proximal profunda femoral and popliteal veins are patent without thrombus. Normal Doppler waveforms. Normal compressibility and/or augmentation response. There is possible reflux in the left mid greater saphenous vein. The right saphenofemoral junction AP diameter 0.6 cm. The saphenofemoral junction depth is 3.6 cm. Right: The mid saphenofemoral junction AP diameter 0.6 cm. The mid saphenofemoral junction depth is 3.3 cm. The greater saphenous vein distal to saphenous femoral junction is 0.35 cm The great saphenous vein distal to saphenofemoral junction depth is 1.96 cm. Left: The left mid saphenofemoral junction AP diameter 0.6 cm. The mid left saphenofemoral junction depth is 3.3 cm. The greater saphenous vein to saphenofemoral junction on the left is 0.47 cm. There is some possible reflux in the left mid greater saphenous vein. The left greater saphenous vein distal to saphenofemoral junction depth is 1.76 cm. Superficial veins: Greater saphenous veins at the saphenofemoral junctions are patent bilaterally without thrombus. Soft tissues: Unremarkable. US/CV tre dup insufito [facility] [id number] IMPRESSION: 1. No evidence of deep vein thrombosis. 2. Possible reflux in the left mid greater saphenous vein.
== END 2025-05-04 23:59 | disposition home or self-care (01) ==
LOC: RAD 09:19 → ONCMED 09:28
PROVIDERS: PCP Family Medicine; Visit Provider Nurse Practitioner Family
DX: C50.512 Malignant neoplasm of lower-outer quadrant of left female breast (principal); Z17.0 Estrogen receptor positive status [ER+]; R03.0 Elevated blood-pressure reading, without diagnosis of hypertension; Z92.3 Personal history of irradiation; Z92.23 Personal history of estrogen therapy; Z90.710 Acquired absence of both cervix and uterus; Z79.899 Other long term (current) drug therapy; I87.2 Venous insufficiency (chronic) (peripheral)
CPT/HCPCS: 93970

== ENCOUNTER → 2025-04-24 10:51 | Outpatient (BNVA) | payer MEDICARE, SELFPAY | PROVIDERS: PCP Family Medicine; Visit Provider Podiatrist Foot & Ankle Surgery | DX: M79.671 Pain in right foot (principal); M79.672 Pain in left foot; R60.9 Edema, unspecified; M76.822 Posterior tibial tendinitis, left leg; M54.16 Radiculopathy, lumbar region; E11.9 Type 2 diabetes mellitus without complications; Z79.4 Long term (current) use of insulin | CPT/HCPCS: 99213 ==

== ENCOUNTER 2025-04-29 08:47 | Day surgery (SDC) | payer MEDICARE, SELFPAY ==
[2025-04-29] VITALS (8 sets, daily range): BP systolic 132–156; BP diastolic 59–88; PULSE 65–82; RESP 16–18; TEMP 36.2–37.4; O2SAT 94–98; BMI 38.4
--- NOTE | 2025-04-29 09:30 | W.PM.OPSFHP ---
Same Day Surgery H&P Indication for Procedure/HPI DATE OF PROCEDURE: April 29, 2025 CHIEF COMPLAINT/INDICATIONFOR SURGICAL PROCEDURE: Left wrist de Quervain's disease PREOP DIAGNOSIS: Left wrist de Quervain's disease PLANNED PROCEDURE: Operation Date: 04/29/25 10:55 Proposed Procedures p wrist dequervain's release(Left) - Damon Walton, DO Medications/Allergies* Home Medications ?Medication ?Instructions ?Recorded ?Confirmed ?Type nitroglycerin 0.4 mg sublingual 0.4 mg sublingual Q5M PRN chest 03/30/21 04/28/25 History tablet pain B complex 1 tab PO DAILY 02/28/23 04/28/25 History Viatamin D3 1 tab PO DAILY 02/28/23 04/28/25 History Young living essentail oils 1 tab PO DAILY 02/28/23 04/28/25 History Calcium Mag Zinc Pottassuim ascorbic acid (vitamin C) 1,000 mg 500 mg PO DAILY 02/28/23 04/28/25 History tablet coenzyme Q10 100 mg capsule 100 mg PO DAILY 02/28/23 04/28/25 History true nature probiotic 12 strain 1 tab PO DAILY 02/28/23 04/28/25 History vitamin E (dl, acetate) 45 mg (100 45 mg PO DAILY 02/28/23 04/28/25 History unit) capsule atorvastatin 20 mg tablet 20 mg PO DAILY 04/28/25 04/28/25 History diltiazem HCl 180 mg 180 mg PO DAILY 04/28/25 04/28/25 History capsule,extended release 24 hr donepezil 10 mg tablet 10 mg PO DAILY 04/28/25 04/28/25 History enalapril maleate 20 mg tablet 20 mg PO BID 04/28/25 04/28/25 History insulin glargine 100 unit/mL (3 See Rx Instructions .Route .COMPLEX 04/28/25 04/28/25 History mL) subcutaneous pen (Lantus Solostar U-100 Insulin) omeprazole 20 mg capsule,delayed 20 mg PO BID 04/28/25 04/28/25 History release pioglitazone 30 mg tablet 30 mg PO DAILY 04/28/25 04/28/25 History Allergies/Adverse Reactions Allergy/AdvReac Type Severity Reaction Status Date / Time codeine Allergy Mild unknown Verified 04/28/25 09:41 hydrocodone Allergy Mild unknown Verified 04/28/25 09:41 loratadine Allergy Mild unknown Verified 04/28/25 09:41 oxycodone Allergy Mild unknown Verified 04/28/25 09:41 prochlorperazine (From Allergy Mild unknown Verified 04/28/25 09:41 Compazine) cortisone Allergy Unknown Verified 04/28/25 09:41 Estrogens Allergy unknown Verified 04/28/25 09:41 insect venom Allergy Unknown Verified 04/28/25 09:41 lovastatin Allergy unknown Verified 04/28/25 09:41 prednisone Allergy unknown Verified 04/28/25 09:41 NSAIDS (Non-Steroidal AdvReac Mild worsened Verified 04/28/25 09:41 Anti-Inflamma heartburn Pertinent History/Comorbid Conditions* Medical History (Updated 03/30/25 @ 07:49 by Phill Potter DPM) Breast abscess BRCA2 gene mutation positive Breast cancer Irritable bowel syndrome with diarrhea Hearing loss, bilateral History of nonmelanoma skin cancer Helicobacter pylori gastritis Lumbar disc disease with radiculopathy Facet arthropathy, lumbar GERD (gastroesophageal reflux disease) Colon polyps Dyslipidemia Type 2 diabetes mellitus Hypertension Surgical History (Updated 01/20/24 @ 09:12 by Juvenal March MD) History of hysterectomy with bilateral oophorectomy History of cataract extraction with lens replacement 2021 History of tonsillectomy 1960 History of ankle surgery left tarsal tunnel History of carpal tunnel surgery of right wrist 2011 History of arthroscopy of right knee 2000 History of arthroscopy of left knee meniscus, 2013 History of foot surgery left foot neuroma removal History of colonoscopy with polypectomy (05/06/21) 2018 History of esophagogastroduodenoscopy (EGD) (05/06/21) 2018 History of x2 History of back surgery L4-5 Family History (Updated 02/17/22 @ 08:27 by Casie Parrish MD) Diabetes Father CAD (coronary artery disease) Father, Onset Age: 90 Grandmother, Onset Age: 50 [place] Grandfather, Onset Age: 50 [place] Family/Other UNCLE [place] Cancer Father skin Mother Stroke Grandfather Denies family history of Clotting disorder Dementia Chronic kidney disease (CKD) Suicide Anesthesia complication Bleeding disorder Lung disease Social History Smoking and tobacco/nicotine status: never used tobacco/nicotine Second hand smoke exposure: No Alcohol intake: current Alcohol intake frequency: holidays/special occasions only Alcohol type: wine Substance/Drug Use: never Lives independently: Yes Household members: spouse and children Marital status: Number of children: 2 Pertinent Exam Findings alert, oriented x 3, operative site marked and procedure specific exam findings Please refer to anesthesia preoperative valuation for heart and lung findings Please refer to detailed orthopedic examination from 03/19/2025 listed below: Left Hand/Wrist Exam: -Positive Drew's test -First dorsal compartment tender to palpation -Negative Tinel's at wrist -Negative Tinel's at elbow -Minimal discomfort CMC joint left thumb -Minimal pain with CMC grind -Positive TTP to right ring finger A1 -No TTP with and no triggering over Left middle finger A1 armando Patient does have tenderness palpation over the first dorsal compartment on the right wrist as well as previous incision site over the first dorsal compartment as well as positive Drew's on exam. Subtle duputreyn's cord on right ring finger Recommendations Risks and benefits of procedure reviewed and Patient/family agree to proceed Surgery/Procedure today Other Plans: Plan to proceed to the OR today for left wrist de Quervain's release. Patient understands Anzemet's procedure risk benefits complication alternative surgical nonsurgical treatment options. Understanding risk of surgery patient like to proceed with surgical invention. All questions answered at this time. Coding Level of Care Code Acute Code for Pretty Rich
[2025-04-29] MEDS: acetaminophen 1,000 MG/100 ML PIGGYBACK 400 MG IV (09:36)
--- NOTE | 2025-04-29 09:49 | ANES.PREANE2 ---
Pre-Anesthetic Assessment Height/Weight: Height 1.57 m Weight 95.254 kg Temp Pulse Resp BP Pulse Ox O2 Del Method 97.1 F L 79 16 156/67 96 Room Air 04/29/25 09:22 04/29/25 09:22 04/29/25 09:22 04/29/25 09:22 04/29/25 09:22 04/29/25 09:22 Preop Diagnosis: Left wrist de Quervain's disease Operation Date: 04/29/25 10:55 Proposed Procedures p wrist dequervain's release(Left) - Damon Anton, DO Familial anesthetic complications: None Was Beta Neva taken within 24 hours: N/A Was Clonidine taken within 24 hours: N/A Last intake: Intake Last Liquid Date 04/28/25 Last Liquid Time 22:00 Last Solid Date 04/28/25 Last Solid Time 22:00 Social No alcohol and No tobacco Exam alert, oriented x 3, clear to auscultation bilaterally and regular rate & rhythm Airway Mallampati: Class III Dentition: full CV/HEM Stable Angina Pulm HTN GI Gastroesophageal Reflux Disease Metabolic Diabetes Mellitus and Morbid Obesity Anesthetic Plan ASA status: 3 Anesthesia: MAC Risk of > 500 ml blood loss (7ml/kg in children): No Medications/Allergies Home Medications ?Medication ?Instructions ?Recorded ?Confirmed ?Last Taken ?Type nitroglycerin 0.4 mg sublingual 0.4 mg sublingual Q5M PRN chest 03/30/21 04/28/25 Unknown History tablet pain B complex 1 tab PO DAILY 02/28/23 04/28/25 04/28/25 History Viatamin D3 1 tab PO DAILY 02/28/23 04/28/25 04/28/25 History Young living essentail oils 1 tab PO DAILY 02/28/23 04/28/25 04/28/25 History Calcium Mag Zinc Pottassuim ascorbic acid (vitamin C) 1,000 mg 500 mg PO DAILY 02/28/23 04/28/25 04/28/25 History tablet coenzyme Q10 100 mg capsule 100 mg PO DAILY 02/28/23 04/28/25 04/28/25 History true nature probiotic 12 strain 1 tab PO DAILY 02/28/23 04/28/25 04/28/25 History vitamin E (dl, acetate) 45 mg (100 45 mg PO DAILY 02/28/23 04/28/25 04/28/25 History unit) capsule diphenoxylate-atropine 2.5 2.5 tab PO QID PRN IBS #90 tabs 12/16/24 04/28/25 Unknown Rx mg-0.025 mg tablet lancets #200 ea 01/10/25 04/24/25 Unknown Rx blood sugar diagnostic (Contour #100 ea 02/10/25 04/24/25 Unknown Rx Test Strips) blood-glucose meter (Contour Meter) #1 ea 02/10/25 04/24/25 Unknown Rx pen needle, diabetic 31 gauge x #100 ea 04/18/25 04/24/25 Unknown Rx 5/16 atorvastatin 20 mg tablet 20 mg PO DAILY 04/28/25 04/28/25 04/28/25 History diltiazem HCl 180 mg 180 mg PO DAILY 04/28/25 04/28/25 04/28/25 History capsule,extended release 24 hr donepezil 10 mg tablet 10 mg PO DAILY 04/28/25 04/28/25 04/28/25 History enalapril maleate 20 mg tablet 20 mg PO BID 04/28/25 04/28/25 04/28/25 History insulin glargine 100 unit/mL (3 See Rx Instructions .Route .COMPLEX 04/28/25 04/28/25 04/28/25 History mL) subcutaneous pen (Lantus Solostar U-100 Insulin) omeprazole 20 mg capsule,delayed 20 mg PO BID 04/28/25 04/28/25 04/28/25 History release pioglitazone 30 mg tablet 30 mg PO DAILY 04/28/25 04/28/25 04/28/25 History tramadol 50 mg tablet 50 mg PO Q6H PRN pain #20 tabs 04/29/25 Unknown Rx Allergies Allergy/AdvReac Type Severity Reaction Status Date / Time codeine Allergy Mild unknown Verified 04/28/25 09:41 hydrocodone Allergy Mild unknown Verified 04/28/25 09:41 loratadine Allergy Mild unknown Verified 04/28/25 09:41 oxycodone Allergy Mild unknown Verified 04/28/25 09:41 prochlorperazine (From Allergy Mild unknown Verified 04/28/25 09:41 Compazine) cortisone Allergy Unknown Verified 04/28/25 09:41 Estrogens Allergy unknown Verified 04/28/25 09:41 insect venom Allergy Unknown Verified 04/28/25 09:41 lovastatin Allergy unknown Verified 04/28/25 09:41 prednisone Allergy unknown Verified 04/28/25 09:41 NSAIDS (Non-Steroidal AdvReac Mild worsened Verified 04/28/25 09:41 Anti-Inflamma heartburn Current Medications Generic Name Dose Route Start Last Admin Trade Name Freq PRN Reason Stop Dose Admin Sodium Chloride 1,000 mls @ 30 mls/hr 04/29/25 09:15 04/29/25 09:35 Sodium Chloride 0.9% IV 04/30/25 09:14 30 mls/hr .Q24H GENIA Administration PFSH Anesthesia Medical History Breast abscess BRCA2 gene mutation positive Breast cancer Irritable bowel syndrome with diarrhea Hearing loss, bilateral History of nonmelanoma skin cancer Helicobacter pylori gastritis Lumbar disc disease with radiculopathy Facet arthropathy, lumbar GERD (gastroesophageal reflux disease) Colon polyps Dyslipidemia Type 2 diabetes mellitus Hypertension Surgical History History of hysterectomy with bilateral oophorectomy History of cataract extraction with lens replacement 2021 History of tonsillectomy 1960 History of ankle surgery left tarsal tunnel History of carpal tunnel surgery of right wrist 2011 History of arthroscopy of right knee 2000 History of arthroscopy of left knee meniscus, 2013 History of foot surgery left foot neuroma removal History of colonoscopy with polypectomy (05/06/21) 2017 History of esophagogastroduodenoscopy (EGD) (05/06/21) 2018 History of x2 History of back surgery L4-5 Family History Father Diabetes CAD (coronary artery disease), Onset Age: 90 Cancer skin Grandmother CAD (coronary artery disease), Onset Age: 50 [place] Grandfather CAD (coronary artery disease), Onset Age: 50 [place] Stroke Family/Other CAD (coronary artery disease) UNCLE [place] Mother Cancer Denies family history of Clotting disorder Dementia Chronic kidney disease (CKD) Suicide Anesthesia complication Bleeding disorder Lung disease Social History Smoking and tobacco/nicotine status: never used tobacco/nicotine Second hand smoke exposure: No Alcohol intake: current Alcohol intake frequency: holidays/special occasions only Alcohol type: wine Substance/Drug Use: never Lives independently: Yes Household members: spouse and children Marital status: Number of children: 2 Data Anesthesia Cardiac Studies: Echocardiogram 05/11/21 Sestamibi Stress Test (Cardiology) 08/05/21
[2025-04-29] MEDS: ceFAZolin 2,000 MG in sodium chloride 0.9% (plus) 50 ML 100 MG IV (10:20)
[2025-04-29] MEDS: ROPivacaine 0.5% SDV 30 mL 150 MG INJECTION (10:50)
--- NOTE | 2025-04-29 10:54 | P.BOP_ITS ---
Date of Procedure: 04/29/2025 Surgeon: Damon Walton DO Wheelchair Rental Clerk(s): None Procedure(s) performed: Left wrist de Quervain's release Findings of the procedure(s): Underwent procedure as planned without issues or complications taken to recovery in stable condition Estimated blood loss: 5 mL Specimen(s) removed: None Post-operative diagnosis: Left wrist de Quervain's disease
--- NOTE | 2025-04-29 10:55 | PM.OP ---
Operative Report Date of procedure: April 29, 2025 Surgeon: Damon Walton DO Procedure: Preop Diagnosis: Left wrist de Quervain's disease Post-op diagnosis: Same Procedure done: 1. Left wrist de Quervain's release Surgeon: Damon Walton DO Anesthesia: MAC (Local) Estimated blood loss: [5]mL Tourniquet time [7]minutes IV fluids: 700 mL Complications: None Findings: See operative report narrative Condition: stable Disposition: same day Brief History: Patient is a pleasant [79]year-old [female] with left wrist de Quervain's disease. Patient has been worked up in the outpatient setting findings and physical examination consistent with this. Patient's failed to respond to conservative treatment at this time. We detailed out patient's risk benefits complication alternatives with surgical and nonsurgical treatment options. Through shared decision making, patient agrees to proceed with surgical intervention of the left wrist de Quervain's release . Patient understands and agrees with current plan. All questions answered. Procedure: Patient seen and evaluated in the preoperative holding area. Consent was reviewed and signed with patient. Correct extremity was marked. Patient was seen evaluated by the anesthesia department once cleared for surgery was brought back to the operative suite. Patient was kept on [facility] in supine position all bony prominences were well-padded patient properly secured to the bed. Left upper extremity was then placed onto an armboard. Patient underwent anesthesia per the anesthesia department. Patient's left upper extremity was then prepped and draped in standard orthopedic fashion. Final timeout performed. Patient received appropriate preoperative antibiotics. Under sterile aseptic technique patient received local anesthesia over the preplanned de Quervain's release incision site. Esmarch was used exsanguinate the lower forearm and Esmarch tourniquet was set at the proximal aspect of the forearm. I then proceeded with the left wrist de Quervain's release.? I marked out the first dorsal compartment a small longitudinal incision was made directly over this.? Sharp scalpel incision was made through skin only switch to Littler dissection scissors and protected the superficial branch of the radial nerve as well as neurovascular structures.? I then had direct visualization of the first dorsal compartment sharp scalpel incision I used to then simply incise the first dorsal compartment I switched dissection scissors to release this both proximally and distally to its entirety the EPB tendon did have a subsheath which was subsequently released as well.? I then subsequently used a rag nail and mobilized each tendon that verify no areas of entrapment and this completed the left wrist de Quervain's release. No masses were noted. Tendons appeared healthy. Wound was then thoroughly irrigated. Tourniquet removed. Hemostasis satisfactory with bipolar electrocautery. I then closed the incision with interrupted 3-0 Vicryl suture and interrupted nylon stitches. Xeroform 4 x 4's and a bulky soft dressing was applied to the left upper extremity. Patient was then awakened from anesthesia and taken to PACU in stable condition. Patient tolerated procedure without complications. Disposition: Patient taken to PACU in stable condition recovering well. Dressing clean dry and intact. Patient will receive appropriate discharge instructions as well as pain medication postoperatively. Patient to follow-up with me in the office in 2 weeks. They understand they may be weightbearing as tolerated to the left hand. Patient should keep incision clean dry and intact. Patient understands if any questions or concerns may contact the office.
--- NOTE | 2025-04-29 12:15 | ANE.PACU2 ---
Inpatient post-anesthesia follow up: Airway intact: Yes Vital signs: Temperature 97.7 F Pulse Rate 66 Respiratory Rate 16 Blood Pressure 154/88 Pulse Oximetry 98 Oxygen Delivery Me thod Room Air Oxygen Flow Rate Fraction of Inspir ed Oxygen Hydration adequate: Yes Nausea and vomiting: No Pain level: 1 Mental status: Baseline
== END 2025-04-29 12:15 | disposition home or self-care (01) ==
PROVIDERS: PCP Family Medicine; Visit Provider Student in an Organized Health Care Education/Training Program
PROC: (CPT 25000; principal; 2025-04-29 10:55)
DX: M65.4 Radial styloid tenosynovitis [de Quervain] (principal); K21.9 Gastro-esophageal reflux disease without esophagitis; E11.9 Type 2 diabetes mellitus without complications; E66.01 Morbid (severe) obesity due to excess calories; Z68.38 Body mass index [BMI] 38.0-38.9, adult; I20.89 Other forms of angina pectoris; I27.20 Pulmonary hypertension, unspecified; Z79.4 Long term (current) use of insulin; Z85.3 Personal history of malignant neoplasm of breast; Z85.828 Personal history of other malignant neoplasm of skin; E78.5 Hyperlipidemia, unspecified; I10 Essential (primary) hypertension
CPT/HCPCS: 25000; 36416; 82962; J0131; J0690; J1885; J2704; J2795; J3010; J7030; J9999

== ENCOUNTER → 2025-05-14 15:21 | Outpatient (BNVA) | payer MEDICARE, SELFPAY | PROVIDERS: PCP Family Medicine; Visit Provider Physician Assistant | DX: Z98.890 Other specified postprocedural states (principal) | CPT/HCPCS: 99024 ==

== ENCOUNTER → 2025-05-20 10:17 | Outpatient (BNVA) | payer MEDICARE, SELFPAY | PROVIDERS: PCP Family Medicine; Visit Provider Nurse Practitioner Family | DX: L21.8 Other seborrheic dermatitis (principal); L57.8 Other skin changes due to chronic exposure to nonionizing radiation; L82.1 Other seborrheic keratosis; D22.39 Melanocytic nevi of other parts of face; Z08 Encounter for follow-up examination after completed treatment for malignant neoplasm | CPT/HCPCS: 17000; 99214 ==